=== PATIENT | female | born 1980 | race Caucasian/White ===

== ENCOUNTER 2017-12-02 08:50 | Emergency (ER) | payer OTHER ==
[2017-12-02 08:56] VITALS: PULSE 96; TEMP 98.3; BMI 29.0
[2017-12-02] MEDS ORDERED: diazePAM 2 MG TABLET PO ONE (09:49)
--- NOTE | 2017-12-02 09:53 | PDOC ---
History of Present Illness - General Chief Complaint: Pain Stated Complaint: CHEST AND BACK PAIN Time Seen by Provider: 12/02/17 09:07 History Source: Patient Exam Limitations: No Limitations - History of Present Illness Initial Comments: 12/02/17 09:51 37 yr female with c/o burning to her neck and chest started this am when she rolled over in bed. Pt felt stiffness, no chest pain no SOB. no medical history or allergies. LMP last week. Severity: mild Associated Symptoms: reports: chest pain Past History - Past Medical History Allergies/Adverse Reactions: Allergies Allergy/AdvReac Type Severity Reaction Status Date / Time Penicillins Allergy Mild Vomiting Verified 12/02/17 08:52 Home Medications: Ambulatory Orders Diazepam [Valium] 5 mg PO Q8H PRN #10 tablet MDD 15mg 12/02/17 Naproxen [Naprosyn] 500 mg PO BID PRN #28 tablet 12/02/17 Anemia: No Asthma: No Cancer: No Cardiac Disorders: No CVA: No COPD: No CHF: No Dementia: No Diabetes: No GI Disorders: No Disorders: No HTN: No Hypercholesterolemia: No Liver Disease: No Seizures: No Thyroid Disease: No - Suicide/Smoking/Psychosocial Hx Smoking History: Never smoked Have you smoked in the past 12 months: No Information on smoking cessation initiated: No Hx Alcohol Use: Yes (occasional) Drug/Substance Use Hx: Yes (nate) Substance Use Type: Marijuana Hx Substance Use Treatment: No *Physical Exam - Vital Signs Last Vital Signs Temp Pulse Resp BP Pulse Ox 98.3 F 96 H 18 124/74 100 12/02/17 08:53 12/02/17 08:53 12/02/17 08:53 12/02/17 08:53 12/02/17 08:53 - Physical Exam General Appearance: Yes: Nourished, Appropriately Dressed HEENT: positive: EOMI, ES, Normal ENT Inspection, TMs Normal, Pharynx Normal Neck: positive: Supple, Decreased range of motion. negative: Tender, Carotid bruit, Stridor, Lymphadenopathy (L), Rigidity, Tender lateral, Tender midline Respiratory/Chest: positive: Lungs Clear, Normal Breath Sounds. negative: Chest Tender Cardiovascular: positive: Regular Rhythm, Regular Rate Gastrointestinal/Abdominal: positive: Normal Bowel Sounds, Soft Musculoskeletal: positive: Normal Inspection, Decreased Range of Motion (of cervical neck, no midline tenderness, no soft tissue swelling or tenderness , pain with flexion and extension and lateral rotation ) Extremity: positive: Normal Capillary Refill, Normal Inspection, Normal Range of Motion Integumentary: positive: Normal Color, Dry, Warm Neurologic: positive: Fully Oriented, Alert, Normal Mood/Affect, Normal Response , Motor Strength 5/5 Heart Score/ECG Review - ECG Impressions Normal ECG: Yes Non-specific ST Elevation: No Comment:: 12/02/17 09:50 NSR signed by ED Treatment Course - ADDITIONAL ORDERS Additional order review: Laboratory Results 12/02/17 09:40 Urine HCG, Qual Negative - RADIOLOGY Radiology Studies Ordered: Category Date Time Status CHEST PA & LAT [RAD] Stat Radiology 12/02/17 09:49 Ordered SPINE-CERVICAL [RAD] Stat Radiology 12/02/17 09:49 Ordered Medical Decision Making - Medical Decision Making 12/02/17 09:52 cc: chest pain with turning of her neck no arm pain or numbness no sore throat, denies fever chills no cough will check , will give maalox, zantac and valium xray chest and neck non toxic stable vitals 12/02/17 10:32 xrays are normal pt denies any chest pain at present no SOB discussed the case and the plan with who agrees with plan of care pt is to return to ER for any worsening symptoms will take naprosyn and valium as needed for spams, pain no risk factors for PE PECARN: 0 criteria No need for further workup, as <2% chance of PE. If no criteria are positive and clinicians pre-test probability is <15%, PERC Rule criteria are satisfied. blood pressures are similair in both arms no changes *DC/Admit/Observation/Transfer Diagnosis at time of Disposition: Muscle spasm - Discharge Dispostion Disposition: HOME Condition at time of disposition: Good - Prescriptions Prescriptions: Diazepam [Valium] 5 mg PO Q8H PRN #10 tablet MDD 15mg PRN Reason: Muscle Spasms Naproxen [Naprosyn] 500 mg PO BID PRN #28 tablet PRN Reason: Pain - Referrals Referrals: Josh Stephenson MD [Staff Physician] - - Patient Instructions Additional Instructions: please follow up with for primary care call Monday to set up appointment take the medications as prescribed do not drive while taking valium apply warm compresses to the areas of pain to your neck especially Return to ER for any worsening symptoms any shortness of breath fever, chest pain or any other concerns - Post Discharge Activity
[2017-12-02] MEDS ORDERED: diazePAM 2 MG TABLET ONE (09:58)
[2017-12-02 10:23] VITALS: BP 116/70
[2017-12-02] MEDS ORDERED: RANITIDINE HCL 150 MG TABLET (FP) PO ONE (10:29)
[2017-12-02] MEDS ORDERED: MAG HYDROX/AL HYDROX/SIMETH 30 ML UNIT-DOSE CUP PO ONE (10:29)
[2017-12-02] MEDS ORDERED: RANITIDINE HCL 150 MG TABLET (FP) ONE (10:31)
[2017-12-02] MEDS ORDERED: MAG HYDROX/AL HYDROX/SIMETH 30 ML UNIT-DOSE CUP ONE (10:31)
--- NOTE | 2017-12-03 11:15 | PDOC ---
Patient Follow-up (Call Back) - Post ED Follow - Up Chief Complaint: Pain Condition at time of discharge: Good Disposition at time of original discharge: HOME Signs/Symptoms Improved: Yes (pt states "it's better but not gone") - Disposition Additional Instructions/Notes: spoke with pt this am to see how she was doing as a follow up call. pt states she does feel better however feels it more when she wakes up. pt denies any shortness of breath no chest pain no fever no cough. I have discussed pt should return to ER for any concerns and follow with the referral I gave her yesterday. Pt agrees with plan and is satisified with the plan.
--- NOTE | 2017-12-03 16:08 | EKG ---
Test Reason : Blood Pressure : / mmHG Vent. Rate : 083 BPM Atrial Rate : 083 BPM P-R Int : 116 ms QRS Dur : 072 ms QT Int : 376 ms P-R-T Axes : 041 046 050 degrees QTc Int : 441 ms NORMAL SINUS RHYTHM NORMAL ECG NO PREVIOUS ECGS AVAILABLE Confirmed by Drew Okeefe ([id number]) on 12/03/2017 4:07:40 PM Referred By: Confirmed By:Drew Okeefe
== END 2017-12-02 10:41 | disposition home or self-care (01) ==
LOC: JERFT 08:50
DX: M62.838 Other muscle spasm (principal); X50.1XXA Overexertion from prolonged static or awkward postures, initial encounter; Y93.89 Activity, other specified; Y92.032 Bedroom in apartment as the place of occurrence of the external cause
CPT/HCPCS: 71046-TC; 72050-TC; 84703; 93005; 93010; 99281-25

== ENCOUNTER 2018-08-18 13:40 | Emergency (ER) | payer SELFPAY ==
[2018-08-18 13:48] VITALS: BMI 29.7
--- NOTE | 2018-08-18 13:48 | PDOC ---
History of Present Illness - General Chief Complaint: Edema Stated Complaint: SWOLLEN LEGS Time Seen by Provider: 08/18/18 13:48 Past History - Past Medical History Allergies/Adverse Reactions: Allergies Allergy/AdvReac Type Severity Reaction Status Date / Time Penicillins Allergy Mild Vomiting Verified 08/18/18 13:45 Home Medications: Ambulatory Orders Diazepam [Valium] 5 mg PO Q8H PRN #10 tablet MDD 15mg 12/02/17 Diazepam [Valium] 5 mg PO Q8H PRN #12 tablet MDD 15 12/02/17 Naproxen [Naprosyn -] 500 mg PO BID #14 tablet 12/02/17 Naproxen [Naprosyn] 500 mg PO BID PRN #28 tablet 12/02/17 Anemia: No Asthma: No Cancer: No Cardiac Disorders: No CVA: No COPD: No CHF: No Dementia: No Diabetes: No GI Disorders: No Disorders: No HTN: No Hypercholesterolemia: No Liver Disease: No Seizures: No Thyroid Disease: No - Immunization History Immunization Up to Date: Yes - Suicide/Smoking/Psychosocial Hx Smoking History: Never smoked Have you smoked in the past 12 months: No Hx Alcohol Use: No Drug/Substance Use Hx: Yes Substance Use Type: Marijuana Hx Substance Use Treatment: No *Physical Exam - Vital Signs Last Vital Signs Temp Pulse Resp BP Pulse Ox 98.7 F 98 H 18 128/75 100 08/18/18 13:45 08/18/18 13:45 08/18/18 13:45 08/18/18 13:45 08/18/18 13:45
--- NOTE | 2018-08-18 13:56 | PDOC ---
History of Present Illness - General History Source: Patient Exam Limitations: No Limitations - History of Present Illness Initial Comments: 08/18/18 14:23 The patient is a 37-year-old female with past medical history significant for fibroids and cyst was sent to the emergency department from [facility] for low H& H of 7.5. The patient reports she was following up at for B/l ankle/leg swelling since yesterday, states she noticed a purplish imprint to the ankle when she took off her socks yesterday. The patient states she followed up at [facility] earlier today, where she had some blood work done. The patient reports she was informed that her hemoglobin is low and referred the patient to follow up at the ER. The patient states her mother told her that she looks pale, which she attributes to her vegetarian diet. Denies prior hx of low blood work, chest pain, shortness of breath, leg cramping, recent travel, hematochezia, melena, lightheadedness, dizziness. Denies hx of transfusion. Allergies: penicillins Social history: No past or present use of tobacco or alcohol use reported. Marijuana use reported. Surgical history: none reported PCP: none reported. <Shyanne Wagner - Last Filed: 08/18/18 17:17> <Cheryl Larkin - Last Filed: 08/18/18 18:59> - General Chief Complaint: Edema Stated Complaint: SWOLLEN LEGS Time Seen by Provider: 08/18/18 13:48 Past History <Shyanne Wagner - Last Filed: 08/18/18 17:17> - Past Medical History Anemia: No Asthma: No Cancer: No Cardiac Disorders: No CVA: No COPD: No CHF: No Dementia: No Diabetes: No GI Disorders: No Disorders: No HTN: No Hypercholesterolemia: No Liver Disease: No Seizures: No Thyroid Disease: No - Immunization History Immunization Up to Date: Yes - Suicide/Smoking/Psychosocial Hx Smoking History: Never smoked Have you smoked in the past 12 months: No Hx Alcohol Use: No Drug/Substance Use Hx: Yes Substance Use Type: Marijuana Hx Substance Use Treatment: No <Cheryl Larkin - Last Filed: 08/18/18 18:59> - Past Medical History Allergies/Adverse Reactions: Allergies Allergy/AdvReac Type Severity Reaction Status Date / Time Penicillins Allergy Mild Vomiting Verified 08/18/18 13:45 Home Medications: Ambulatory Orders Ferrous Sulfate 325 mg PO DAILY #14 tablet 08/18/18 Review of Systems - Review of Systems Able to Perform ROS?: Yes Comments:: 08/18/18 14:22 GENERAL/CONSTITUTIONAL: No fever or chills. No weakness. HEAD, EYES, EARS, NOSE AND THROAT: No change in vision. No ear pain or discharge. No sore throat. CARDIOVASCULAR: No chest pain or shortness of breath. RESPIRATORY: No cough, wheezing, or hemoptysis. GASTROINTESTINAL: No nausea, vomiting, diarrhea or constipation. GENITOURINARY: No dysuria, frequency, or change in urination. MUSCULOSKELETAL: No joint or muscle swelling or pain. No neck or back pain. EXTREMITIES: (+) B/l swelling to the leg and ankle. SKIN: No rash NEUROLOGIC: No headache, vertigo, loss of consciousness, or change in strength/ sensation. ENDOCRINE: No increased thirst. No abnormal weight change. HEMATOLOGIC/LYMPHATIC: No anemia, easy bleeding, or history of blood clots. ALLERGIC/IMMUNOLOGIC: No hives or skin allergy. <Shyanne Wagner - Last Filed: 08/18/18 17:17> *Physical Exam - Vital Signs Last Vital Signs Temp Pulse Resp BP Pulse Ox 98.7 F 98 H 18 128/75 100 08/18/18 13:45 08/18/18 13:45 08/18/18 13:45 08/18/18 13:45 08/18/18 13:45 - Physical Exam Comments: 08/18/18 14:19 GENERAL: Awake, alert, and fully oriented, in no acute distress HEAD: No signs of trauma EYES: PERRLA, EOMI, sclera anicteric, (+) pale conjunctiva. ENT: Auricles normal inspection, hearing grossly normal, nares patent, oropharynx clear without exudates. Moist mucosa NECK: Normal ROM, supple, no lymphadenopathy, JVD, or masses LUNGS: Breath sounds equal, clear to auscultation bilaterally. No wheezes, and no crackles HEART: Regular rate and rhythm, normal S1 and S2, no murmurs, rubs or gallops ABDOMEN: Soft, nontender, normoactive bowel sounds. No guarding, no rebound. No masses EXTREMITIES: (+) Trace edema to the ankle. Normal range of motion. No clubbing or cyanosis. No cords, erythema, or tenderness NEUROLOGICAL: Cranial nerves II through XII grossly intact. Normal speech, normal gait SKIN: Pale in color. Warm, Dry, normal turgor, no rashes or lesions noted. 08/18/18 14:23 <Shyanne Wagner - Last Filed: 08/18/18 17:17> - Vital Signs Last Vital Signs Temp Pulse Resp BP Pulse Ox 98.7 F 98 H 18 128/75 100 08/18/18 13:45 08/18/18 13:45 08/18/18 13:45 08/18/18 13:45 08/18/18 13:45 <Cheryl Larkin - Last Filed: 08/18/18 18:59> Heart Score/ECG Review - ECG Intrepretation Comment:: 08/18/18 14:43 sinus at 80, nl axis, nl interval, no acute st/t wave findings <Cheryl Larkin - Last Filed: 08/18/18 18:59> ED Treatment Course - LABORATORY CBC & Chemistry Diagram: 08/18/18 14:14 08/18/18 14:14 <Shyanne Wagner - Last Filed: 08/18/18 17:17> - LABORATORY CBC & Chemistry Diagram: 08/18/18 14:14 08/18/18 14:14 <Cheryl Larkin - Last Filed: 08/18/18 18:59> Medical Decision Making - Medical Decision Making 08/18/18 14:40 a/p: 37yo female sent from urgent care for low h/h -hx of anemia with baseline hgb of 9.5 per prior labs -states hx of fibroid and hx of heavy menstrual cycles -has been told she may need a hysterectomy, not currently menstruating -no brbpr or blood in stool, no vomiting blood -states LE are swollen at the ankle only - noticed last night that her socks made an indent -will repeat labs, will transfuse as necessary -will send IRON studies, prior low mcv -discussed plan with the patient and her family at the bedside who agree with the plan -no lightheaded or dizziness, no cp/sob 08/18/18 14:48 pt with hgb 6.8 stool heme negative will transfuse 1pRBC discussed labs with the patient who agrees with the plan 08/18/18 15:30 pt with O+ blood 08/18/18 16:35 transfusion running, tolerating well 08/18/18 18:23 re-eval: pt sitting up, laughing with her family feels better discussed iron tabs discussed taking colace otc if she develops constipation discussed repeat cbc as outpt discussed following up with heme/onc, production controller, and pmd answered all questions 08/18/18 18:51 transfusion has finished stable for d/c to home vss 08/18/18 18:59 pt feeling much better discussed d/c instructions again. <Cheryl Larkin - Last Filed: 08/18/18 18:59> *DC/Admit/Observation/Transfer - Attestations Scribe Attestion: 08/18/18 17:17 Documentation prepared by Shyanne Wagner, acting as claim review medical director for Cheryl Larkin DO. <Shyanne Wagner - Last Filed: 08/18/18 17:17> - Discharge Dispostion Decision to Admit order: No - Attestations Physician Attestion: 08/18/18 17:03 I, Dr. Cheryl Larkin DO, attest that this document has been prepared under my direction and personally reviewed by me in its entirety. I further attest, that it accurately reflects all work, treatment, procedures and medical decision -making performed by me. <Cheryl Larkin - Last Filed: 08/18/18 18:59> Diagnosis at time of Disposition: Anemia - Discharge Dispostion Condition at time of disposition: Stable - Prescriptions Prescriptions: Ferrous Sulfate 325 mg PO DAILY #14 tablet - Referrals Referrals: Israel Mcmullen MD [Staff Physician] - Franklin Amado MD [Staff Physician] - Josh Stephenson MD [Staff Physician] - Ron Galeano MD [Staff Physician] - - Patient Instructions Printed Discharge Instructions: DI for Iron Deficiency Anemia-Adult Additional Instructions: Please follow up with your PMD. Your iron studies are pending. I did prescribed iron tablets given your small size of the red blood cells. Please follow up with your LEAD ASSEMBLER for your heavy menstrual cycles and heavy vaginal bleeding. Please return to the ED with any further concerns or complaints. Please also follow up with the broke man. Please have your blood counts check again in 2 days.
[2018-08-18 14:25] LABS: BASO % 1.3 % (0-2.0); EOS % 2.9 % (0-4.5); HEMATOCRIT 23.4 % (32.4-45.2); LYMPH % 20.8 % (8-40); MEAN CELL VOLUME 61.7 fl (80-96); MEAN PLT VOLUME 7.8 fl (7.5-11.1); MONO % 4.6 % (3.8-10.2); NEUT % 70.4 % (42.8-82.8); PLATELET COUNT 628 K/MM3 (134-434); WHITE BLOOD COUNT 8.1 K/mm3 (4.0-10.0)
[2018-08-18 14:26] LABS: MCH 17.9 pg (25.7-33.7)
[2018-08-18 14:27] LABS: HEMOGLOBIN 6.8 GM/dL (10.7-15.3)
[2018-08-18 14:48] LABS: INR 1.01 (0.83-1.09); PROTHROMBIN TIME (PATIENT) 11.9 SEC (9.7-13.0)
[2018-08-18 14:51] LABS: ACTIVATED PTT 34.6 SECONDS (25.2-36.5)
[2018-08-18 15:03] LABS: ALBUMIN 3.4 g/dl (3.4-5.0); ALK PHOS 60 U/L (45-117); ANION GAP 7 MMOL/L (8-16); BILIRUBIN,TOTAL 0.2 mg/dL (0.2-1); BLOOD UREA NITROGEN 6 mg/dL (7-18); CALCIUM 8.4 mg/dL (8.5-10.1); CHLORIDE 108 mmol/L (98-107); CO2 26 mmol/L (21-32); CREATININE 0.7 mg/dL (0.55-1.3); GLUCOSE,RANDOM 114 mg/dL (74-106); SGOT/AST 15 U/L (15-37); SGPT/ALT 18 U/L (13-61); SODIUM 141 mmol/L (136-145); TOT PROT 6.7 g/dl (6.4-8.2)
--- NOTE | 2018-08-18 16:38 | EKG ---
Test Reason : Blood Pressure : / mmHG Vent. Rate : 080 BPM Atrial Rate : 080 BPM P-R Int : 110 ms QRS Dur : 074 ms QT Int : 366 ms P-R-T Axes : 032 034 040 degrees QTc Int : 422 ms SINUS RHYTHM WITH SINUS ARRHYTHMIA WITH SHORT IN OTHERWISE NORMAL ECG WHEN COMPARED WITH ECG OF 02-DEC-2017 09:00, NO SIGNIFICANT CHANGE WAS FOUND BASELINE ARTIFACT Confirmed by KRISTEN KWOK, CORDELIA ([id number]) on 08/18/2018 4:38:43 PM Referred By: Confirmed By:CORDELIA PETERSON MD
[2018-08-18 19:32] VITALS: BP 130/70; PULSE 86; TEMP 98.5
[2018-08-20 06:11] LABS: SERUM IRON SATURATION 3 % (15-55); TOTAL IRON BINDING CAPACITY 391 ug/dL (250-450); UIBC 381 ug/dL (131-425)
== END 2018-08-18 19:32 | disposition home or self-care (01) ==
LOC: JER 13:40
PROC: 30233N1 Transfusion of Nonautologous Red Blood Cells into Peripheral Vein, Percutaneous Approach (ICD-10-PCS; principal; 2018-08-18)
DX: D64.9 Anemia, unspecified (principal)
CPT/HCPCS: 36415; 36430; 80053; 82272; 82728; 83540; 83550; 85025; 85610; 85730; 86850; 86900; 86901; 86922; 93005; 93010; 99285-25; P9038; P9058

== ENCOUNTER 2018-10-28 00:53 | Emergency (ER) | payer SELFPAY ==
[2018-10-28 01:05] VITALS: BP 136/76; PULSE 68; TEMP 98.3; BMI 29.0
--- NOTE | 2018-10-28 01:08 | PDOC ---
History of Present Illness - General Chief Complaint: Pain, Acute Stated Complaint: ABD PAIN Time Seen by Provider: 10/28/18 01:07 History Source: Patient Exam Limitations: No Limitations - History of Present Illness Initial Comments: 38 yo F w a pmh of anemia presents to the ER with 24 hours of epigastric pain which radiates to her back associated with nausea and multiple episodes of vomiting. She states there might have been a bit of pink at the end of one her vomiting episodes. She says the vomitus did not look green. She has been throwing up anything she eats. She says the abdominal pain is not temporally related to any food she eats. She has been having normal bowel movements with no diarrhea or constipation. She denies any recent fevers, chills, or infections. Denies any chest pain, SOB , or difficulty breathing. Denies dysuria, frequency, urgency. Denies any numbness, weakness, tingling. PCP: None Allergies: NKA, NKDA Social Hx: Significant marijuana usage. Recreational alcohol usage. Denies smoking cigarettes. Denies other illicit substances. Past History - Past Medical History Allergies/Adverse Reactions: Allergies Allergy/AdvReac Type Severity Reaction Status Date / Time Penicillins Allergy Mild Vomiting Verified 10/28/18 01:05 Home Medications: Ambulatory Orders Ferrous Sulfate 325 mg PO DAILY #14 tablet 08/18/18 Ferrous Sulfate 325 mg PO DAILY #90 tablet 08/22/18 Anemia: No Asthma: No Cancer: No Cardiac Disorders: No CVA: No COPD: No CHF: No Dementia: No Diabetes: No GI Disorders: No Disorders: No HTN: No Hypercholesterolemia: No Liver Disease: No Seizures: No Thyroid Disease: No - Immunization History Immunization Up to Date: Yes - Suicide/Smoking/Psychosocial Hx Smoking History: Never smoked Have you smoked in the past 12 months: No Hx Alcohol Use: No Drug/Substance Use Hx: No Substance Use Type: Marijuana Hx Substance Use Treatment: No Review of Systems - Review of Systems Able to Perform ROS?: Yes Comments:: CONSTITUTIONAL: Absent: fever, no chills, no fatigue EYES: Absent: visual changes ENT: Absent: ear pain, no sore throat CARDIOVASCULAR: Absent: chest pain, no palpitations RESPIRATORY: Absent: cough, no SOB GI: Present: Abdominal pain, nausea, vomiting. Absent: no constipation, no diarrhea GENITOURINARY: Absent: dysuria, no frequency, no hematuria MUSKULOSKELETAL: Present: Back pain Absent: no arthralgia, no myalgia SKIN: Absent: rash NEURO: Absent: headache *Physical Exam - Vital Signs Last Vital Signs Temp Pulse Resp BP Pulse Ox 98.3 F 68 18 136/76 99 10/28/18 00:57 10/28/18 00:57 10/28/18 00:57 10/28/18 00:57 10/28/18 00:57 - Physical Exam Comments: GENERAL: Well-appearing, well-nourished. No apparent distress. HEENT: Normocephalic, atraumatic. PERRL, EOM intact. CARDIOVASCULAR: Normal S1, S2. Regular rate and rhythm. PULMONARY: Clear to auscultation bilaterally. ABDOMEN: There is TTP in the epigastric region. Minimal TTP in the RUQ. Normal bowel sounds. Negative knight sign. Negative rovsig. Abdomen is soft and non- distended. No rebound or guarding. EXTREMITIES: Normal ROM in all four extremities. No gross deformities. SKIN: Warm, dry. No rash NEUROLOGICAL: No focal neurological deficits. Moderate Sedation - Procedure Monitoring Vital Signs: Procedure Monitoring Vital Signs Temperature 98.3 F 10/28/18 00:57 Pulse Rate 68 10/28/18 00:57 Respiratory Rate 18 10/28/18 00:57 Blood Pressure 136/76 10/28/18 00:57 O2 Sat by Pulse Oximetry (%) 99 10/28/18 00:57 ED Treatment Course - LABORATORY CBC & Chemistry Diagram: 10/28/18 01:27 10/28/18 01:27 Medical Decision Making - Medical Decision Making 38 yo F w a pmh of anemia presents to the ER with 24 hours of epigastric pain which radiates to her back associated with nausea and multiple episodes of vomiting. DDx IBNLT: gallstones, pancreatitis, gastroenteritis, food poisoning, other infection, UTI, kidney stones. Plan: Cbc, Cmp, lipase, lactic, ua, Hcg, RUQ us, IV hydration, re-assess. Lipase normal so low concern now for pancreatitis. RUQ US showed gallstones but no cholecystitis. Labs unremarkable. Will DC w GI and surgical FU. *DC/Admit/Observation/Transfer Diagnosis at time of Disposition: Gallstones, Gastroenteritis - Discharge Dispostion Disposition: HOME Condition at time of disposition: Stable Decision to Admit order: No - Referrals Referrals: Carlos Lassiter MD [Staff Physician] - Cody Neri MD [Staff Physician] - - Patient Instructions Printed Discharge Instructions: Acute Abdominal Pain, Gallstones (Alternative Therapy), Gallstones Additional Instructions: You came into the ER with abdominal pain, nausea and vomiting. We looked at your gallbladder and found that you have many stones. We are attaching a surgeon 's number for you to call and schedule an appointment with - Dr. Lassiter. Please call her office up tomorrow. We did some lab tests and found that you do not have pancreatitis. Take motrin, ibuprofen, advil, or tylenol as needed for pain control. Come back to the ER if your pain worsens, or have any other new or worsening concerns. Thank you for coming to the [facility] ER. We hope you feel better soon! Print Language: LIBYAN - Post Discharge Activity
[2018-10-28] MEDS ORDERED: SODIUM CHLORIDE 0.9% 500 ML INFUS.BAG IV ONE (01:28)
[2018-10-28 01:43] LABS: EOS % 2.1 % (0-4.5); HEMOGLOBIN 11.5 GM/dL (10.7-15.3); LYMPH % 19.5 % (8-40); MCH 24.8 pg (25.7-33.7); MCHC 32.9 g/dl (32.0-36.0); MEAN CELL VOLUME 75.3 fl (80-96); MONO % 7.5 % (3.8-10.2); NEUT % 69.9 % (42.8-82.8); PLATELET COUNT 481 K/MM3 (134-434); RBC 4.65 M/mm3 (3.60-5.2); RDW 19.9 % (11.6-15.6); WHITE BLOOD COUNT 9.3 K/mm3 (4.0-10.0)
[2018-10-28] MEDS ORDERED: ACETAMINOPHEN 1000 MG/100 ML VIAL (NON FORMULARY) IVPB ONE (01:44)
--- NOTE | 2018-10-28 01:49 | PDOC ---
Attending Attestation - HPI HPI: 10/28/18 02:00 The patient is a 38 year old female with past medical history significant for anemia (w/ blood transfusion in the past) presents to the emergency department with epigastric pain. The patient presents with 24 hours of epigastric pain that radiates to the back, associated with nausea and multiple episode of nonbilious emesis. The patient reports she might have had an episode of pinkish emesis. The patient reports the pain isnt aggravated with food. The patient reports having a normal bowel movements. Denies fever, hematochezia, melena, diarrhea, constipation, abdominal surgery, dysuria, hematuria, frequency or urgency to urinate, hx of kidney stones. Allergies: penicillins Social history: Marijuana use reported. No tobacco use reported. PCP: None reported - Medical Decision Making 10/28/18 02:00 Documentation prepared by Shyanne Wagner, acting as medical affairs leader for Martha Barry MD. <Shyanne Wagner - Last Filed: 10/28/18 02:00> - Resident Resident Name: Farhan Corey - ED Attending Attestation I have performed the following: I have examined & evaluated the patient, The case was reviewed & discussed with the resident, I agree w/resident's findings & plan - Physicial Exam PE: 10/28/18 02:37 Agree with resident exam. Pt has no fever, nop rebound and no guarding. She has no flank pain and edmundo has normal heart and lungs. She has a small healing cyst beneath the right breast. She has no active infection beneath the breast. - Medical Decision Making 10/28/18 02:39 Pt will be advised to follow with Dr. Lassiter 10/28/18 23:01 Patient Name: JOEL MORTENSEN THIS IS A PRELIMINARY REPORT FROM [facility] N[facility] DATE OF SERVICE: 2018-10-28 02:06:27 IMAGES: 62 EXAM: Ultrasound abdomen limited, right upper quadrant and limited abdominal duplex HISTORY: Rule out gallstones or pancreatitis COMPARISON: None. FINDINGS: Right upper quadrant ultrasound:The liver is normal, without mass or biliary duct dilation. The gallbladder contains multiple stones but there are no secondary findings of cholecystitis. The CBD is not dilated and measures4 millimeters in diameter. Right kidney measures 8.8centimeters in length and is unremarkable. The visualized aorta and IVC are normal. Pancreas is partially obscured, but appears normal. Abdominal duplex on the main portal vein demonstrates normal hepatopedal flow. IMPRESSION: Gallstones without secondary findings of cholecystitis. Borderline right renal atrophy Diagnosis: Biliary colic <Martha Barry - Last Filed: 10/28/18 23:02>
[2018-10-28] MEDS ORDERED: ACETAMINOPHEN INJECTION 100 ML IVPB ONE (01:50)
[2018-10-28 02:17] LABS: ALBUMIN 3.8 g/dl (3.4-5.0); ALK PHOS 72 U/L (45-117); ANION GAP 7 MMOL/L (8-16); BILIRUBIN,TOTAL 0.3 mg/dL (0.2-1); BLOOD UREA NITROGEN 8 mg/dL (7-18); CHLORIDE 102 mmol/L (98-107); CO2 30 mmol/L (21-32); CREATININE 0.8 mg/dL (0.55-1.3); GLUCOSE,RANDOM 105 mg/dL (74-106); LIPASE 138 U/L (73-393); POTASSIUM 4.4 mmol/L (3.5-5.1); SGOT/AST 15 U/L (15-37); SGPT/ALT 19 U/L (13-61); SODIUM 139 mmol/L (136-145); TOT PROT 7.1 g/dl (6.4-8.2)
[2018-10-28 03:04] LABS: URINE APPEARANCE CLEAR; URINE BILIRUBIN NEGATIVE (<2.0 mg/dL); URINE COLOR LTYELLOW; URINE GLUCOSE (UA) NEGATIVE (NEGATIVE); URINE KETONE NEGATIVE (NEGATIVE); URINE LEUK ESTERASE NEGATIVE (NEGATIVE); URINE NITRITE NEGATIVE (NEGATIVE); URINE PROTEIN NEGATIVE (NEGATIVE); URINE UROBILINOGEN NEGATIVE mg/dL (0.2-1.0)
[2018-10-28 03:28] LABS: EPI CELLS RARE /HPF (FEW); URINE MUCUS RARE
--- NOTE | 2018-10-28 19:51 | PDOC ---
Patient Follow-up (Call Back) - Post ED Follow - Up Chief Complaint: Pain Condition at time of discharge: Stable Disposition at time of original discharge: HOME - Disposition Additional Instructions/Notes: Patient was seen for abdominal pain. We received a call back from Dr. Moses crowell in the ED at 7:30 pm saying the US read may have actually been suspicious for cholecystitis. It was equivocal for cholecystitis with possible wall distention but no definitive read. The original read said only gallstones but no cholecystitis. I called up the patient after hearing this news, asked how she was doing, she said she feels well and has not had any issues since she got home. I re-iterated to her the importance of scheduling a follow up [facility] with Dr. Lassiter to discuss whether or not to have her gallbladder removed urgently vs emergently. I once again explained to her what to look out for in terms of signs and symptoms of cholecystitis - worsening abdominal pain, nausea, vomiting , fever, pain with fever after meals and how important it is for her to come back to the ED immediately if her pain worsens. Arnold Barron PGY-1
== END 2018-10-28 03:35 | disposition home or self-care (01) ==
LOC: JER 00:53
PROC: 3E0337Z Introduction of Electrolytic and Water Balance Substance into Peripheral Vein, Percutaneous Approach (ICD-10-PCS; principal; 2018-10-28)
PROC: 3E033NZ Introduction of Analgesics, Hypnotics, Sedatives into Peripheral Vein, Percutaneous Approach (ICD-10-PCS; 2018-10-28)
DX: K52.9 Noninfective gastroenteritis and colitis, unspecified (principal); K80.80 Other cholelithiasis without obstruction
CPT/HCPCS: 36415; 76705-TC; 80053; 81003; 81015; 83605; 83690; 85025; 99282-25; J0131

== ENCOUNTER 2018-11-06 20:10 | Inpatient (IN) | payer SELFPAY ==
[2018-11-06 20:19] VITALS: BMI 28.1
--- NOTE | 2018-11-06 20:36 | PDOC ---
History of Present Illness - General Chief Complaint: Pain, Acute Stated Complaint: PAIN Time Seen by Provider: 11/06/18 20:24 History Source: Patient Exam Limitations: No Limitations - History of Present Illness Initial Comments: 11/06/18 22:43 Patient is a 38-year-old female with past medical history of anemia with hx of transfusion, uterine fibroids, who presents to the emergency department today with epigastric and right upper quadrant pain. Patient states she was seen here approximately 1 week ago and diagnosed with gallstones. She states that today the pain became more intense and she rates it a 12 out of 10. She states that she's been unable to eat due to the pain. Patient admits to nausea however no vomiting. She has been taking Tylenol and Motrin at home with little relief of her symptoms. Denies fevers, chills, shortness of breath, chest pain, vomiting, diarrhea, constipation. SHx: Marijuana use daily, no cigarette use PCP: None Surgery: [facility] COPIER AND PRINTER FIELD TECHNICIAN: Dr. Broderick ([facility]) Past History - Travel Traveled outside of the country in the last 30 days: No Close contact w/someone who was outside of country & ill: No - Past Medical History Allergies/Adverse Reactions: Allergies Allergy/AdvReac Type Severity Reaction Status Date / Time Penicillins Allergy Mild Vomiting Verified 11/06/18 20:18 Home Medications: Ambulatory Orders NK [No Known Home Medication] 11/06/18 Anemia: No Asthma: No Cancer: No Cardiac Disorders: No CVA: No COPD: No CHF: No Dementia: No Diabetes: No GI Disorders: Yes (gallstones) Disorders: No HTN: No Hypercholesterolemia: No Liver Disease: No Seizures: No Thyroid Disease: No - Immunization History Immunization Up to Date: Yes - Suicide/Smoking/Psychosocial Hx Smoking History: Never smoked Have you smoked in the past 12 months: No Information on smoking cessation initiated: No Hx Alcohol Use: No Drug/Substance Use Hx: No Substance Use Type: Marijuana Hx Substance Use Treatment: No Review of Systems - Review of Systems Able to Perform ROS?: Yes Comments:: 11/06/18 22:46 CONSTITUTIONAL: Absent: fever, chills, diaphoresis, generalized weakness, malaise, loss of appetite HEENT: Absent: rhinorrhea, nasal congestion, throat pain, throat swelling, difficulty swallowing, mouth swelling, ear pain, eye pain, visual Changes CARDIOVASCULAR: Absent: chest pain, loss of consciousness, palpitations, irregular heart rate, peripheral edema RESPIRATORY: Absent: cough, shortness of breath, dyspnea with exertion, orthopnea, wheezing, stridor, hemoptysis GASTROINTESTINAL: Present: abdominal pain, nausea Absent: abdominal distension, vomiting, diarrhea , constipation, melena, hematochezia GENITOURINARY: Absent: dysuria, frequency, urgency, hesitancy, hematuria, flank pain, genital pain MUSCULOSKELETAL: Absent: myalgia, arthralgia, joint swelling SKIN: Absent: rash, itching, pallor HEMATOLOGIC/IMMUNOLOGIC: Absent: easy bleeding, easy bruising, lymphadenopathy, frequent infections ENDOCRINE: Absent: unexplained weight gain, unexplained weight loss, heat intolerance, cold intolerance NEUROLOGIC: Absent: headache, focal weakness or paresthesias, dizziness, unsteady gait, seizure, mental status changes, bladder or bowel incontinence PSYCHIATRIC: Absent: anxiety, depression, suicidal or homicidal ideation, hallucinations. Is the patient limited Ukrainian proficient: No *Physical Exam - Vital Signs Last Vital Signs Temp Pulse Resp BP Pulse Ox 97.3 F L 60 16 145/70 100 11/06/18 20:16 11/06/18 20:16 11/06/18 20:16 11/06/18 20:16 11/06/18 20:16 - Physical Exam Comments: 11/06/18 22:46 GENERAL: Well developed, well nourished. Awake and alert. No acute distress. HEENT: Normocephalic, atraumatic. PERRLA, EOMI. No conjunctival pallor. Sclera are non- icteric. Moist mucous membranes. Oropharynx is clear. NECK: Supple. Full ROM. No JVD. Carotid pulses 2+ and symmetric, without bruits. No thyromegaly. No lymphadenopathy. CARDIOVASCULAR: Regular rate and rhythm. No murmurs, rubs, or gallops. Distal pulses are 2+ and symmetric. PULMONARY: No evidence of respiratory distress. Lungs clear to auscultation bilaterally. No wheezing, rales or rhonchi. ABDOMINAL: TTP of the RUQ and epigastric region. (+) ash's sign. Soft. Non-distended. No rebound or guarding. No organomegaly. Normoactive bowel sounds. Large uterus on palpation. MUSCULOSKELETAL Normal range of motion at all joints. No bony deformities or tenderness. No CVA tenderness. EXTREMITIES: No cyanosis. No clubbing. No edema. No calf tenderness. SKIN: Warm and dry. Normal capillary refill. No rashes. No jaundice. NEUROLOGICAL: Alert, awake, appropriate. Cranial nerves 2-12 intact. No deficits to light touch and temperature in face, upper extremities and lower extremities. No motor deficits in the in face, upper extremities and lower extremities. Normoreflexic in the upper and lower extremities. Normal speech. Toes are down- going bilaterally. Gait is normal without ataxia. PSYCHIATRIC: Cooperative. Good eye contact. Appropriate mood and affect. Moderate Sedation - Procedure Monitoring Vital Signs: Procedure Monitoring Vital Signs Temperature 97.3 F L 11/06/18 20:16 Pulse Rate 60 11/06/18 20:16 Respiratory Rate 16 11/06/18 20:16 Blood Pressure 145/70 11/06/18 20:16 O2 Sat by Pulse Oximetry (%) 100 11/06/18 20:16 ED Treatment Course - LABORATORY CBC & Chemistry Diagram: 11/06/18 21:20 11/06/18 21:20 Medical Decision Making - Medical Decision Making 11/06/18 23:12 Patient is a 38-year-old female past medical history of anemia requiring transfusion, fibroids, who presents to the emergency department with worsening right upper quadrant pain today. DDX includes acute cholecystitis, biliary colic , choledocholithiasis, pancreatitis, viral illness. On exam patient with positive Ash sign. No CVA tenderness. Hemoglobin is 9.6 today. WBC WNL, no shift. Lipase, LFT's and total bili also WNL EKG: Rate 62 BPM, NSR with sinus arrhythmia. Normal intervals and axis. No acute ST-T wave changes US shows multiple large gallstones. Gallbladder is not thickened, no pericholecystic fluid Most likely biliary colic at this time. Patient received morphine and ofirmev for her pain with some relief of symptoms. However patient still with significant right upper quadrant tenderness. Admit for biliary colic, intractable abdominal pain, and surgical consult Consult to Dr. Lassiter, who states that she has seen the patient in the office as an outpatient for her biliary colic. That patient was also supposed to have a laparoscopic hysterectomy in November. There was discussion of possibly doing both procedures at the same time at [place]. COPIER AND PRINTER FIELD TECHNICIAN Dr. Broderick. Discussed with patient the need for her hysterectomy. Patient states that she had already called to cancel her hysterectomy with her COPIER AND PRINTER FIELD TECHNICIAN because she felt that her biliary colic was worse. Patient willing to put off her hysterectomy at this time. Understands that she may have to wait to have the hysterectomy due to scarring from the previous gallbladder removal. Also explained to the patient that she could require further transfusion as the fibroids could cause significant bleeding. Patient understands the risks of putting off the hysterectomy. Relayed information to Dr. Lassiter. States that one of her partners will be in to see the patient tomorrow morning. Given that patient does not have acute cholecystitis, will defer antibiotics at this time. Patient nothing by mouth at this time. Maintenance fluids ordered. Symphony consulted. 11/06/18 23:[address] Rhodes. Pt to be placed in observation on med/surg at this time. *DC/Admit/Observation/Transfer Diagnosis at time of Disposition: Gallstones, Biliary colic, Intractable abdominal pain - Discharge Dispostion Condition at time of disposition: Stable Decision to Admit order: Yes - Referrals - Patient Instructions - Post Discharge Activity
[2018-11-06] MEDS ORDERED: SODIUM CHLORIDE 1,000 ML IV STA (20:40)
[2018-11-06] MEDS ORDERED: ACETAMINOPHEN 1000 MG/100 ML VIAL (NON FORMULARY) IVPB ONE (20:41)
--- NOTE | 2018-11-06 20:54 | PDOC ---
*Physical Exam - Vital Signs Last Vital Signs Temp Pulse Resp BP Pulse Ox 97.3 F L 60 16 145/70 100 11/06/18 20:16 11/06/18 20:16 11/06/18 20:16 11/06/18 20:16 11/06/18 20:16 - Physical Exam Comments: 11/06/18 20:54 The patient was examined by [MAGNOLIA Reyes] under my direct supervision. I personally evaluated the patient. I concur with the above findings and the plan of care. ED Treatment Course - LABORATORY CBC & Chemistry Diagram: 11/08/18 06:30 11/08/18 06:30 *DC/Admit/Observation/Transfer Diagnosis at time of Disposition: Gallstones, Biliary colic, Intractable abdominal pain - Discharge Dispostion Disposition: HOME Condition at time of disposition: Improved - Prescriptions - Referrals - Patient Instructions - Post Discharge Activity
[2018-11-06] MEDS ORDERED: morphine CARPU-JECT 4 MG/1 ML DISP.SYRIN IVPUSH ONE (21:12)
[2018-11-06 21:28] LABS: HEMATOCRIT 28.7 % (32.4-45.2); MCH 25.5 pg (25.7-33.7); MONO % 5.8 % (3.8-10.2); RBC 3.78 M/mm3 (3.60-5.2)
[2018-11-06 21:33] LABS: BASO % 0.9 % (0-2.0); EOS % 2.3 % (0-4.5); HEMOGLOBIN 9.6 GM/dL (10.7-15.3); LYMPH % 19.6 % (8-40); MCHC 33.5 g/dl (32.0-36.0); MEAN PLT VOLUME 8.2 fl (7.5-11.1); NEUT % 71.4 % (42.8-82.8); PLATELET COUNT 432 K/MM3 (134-434); RDW 17.5 % (11.6-15.6); WHITE BLOOD COUNT 7.3 K/mm3 (4.0-10.0)
[2018-11-06 21:39] LABS: INR 1.02 (0.83-1.09)
[2018-11-06] MEDS ORDERED: morphine SULFATE 4 MG/ML VIAL ONE (21:48)
[2018-11-06 21:53] LABS: ALBUMIN 3.6 g/dl (3.4-5.0); ALK PHOS 63 U/L (45-117); ANION GAP 7 MMOL/L (8-16); BILIRUBIN,TOTAL 0.2 mg/dL (0.2-1); BLOOD UREA NITROGEN 7 mg/dL (7-18); CALCIUM 8.5 mg/dL (8.5-10.1); CHLORIDE 111 mmol/L (98-107); CO2 23 mmol/L (21-32); CREATININE 0.7 mg/dL (0.55-1.3); GLUCOSE,RANDOM 91 mg/dL (74-106); POTASSIUM 4.3 mmol/L (3.5-5.1); SGOT/AST 17 U/L (15-37); SGPT/ALT 18 U/L (13-61); SODIUM 142 mmol/L (136-145); TOT PROT 6.5 g/dl (6.4-8.2)
[2018-11-06] MEDS ORDERED: ONDANSETRON 4 MG/2 ML VIAL IVPUSH ONE (21:56)
[2018-11-06 22:33] LABS: PLATELET ESTIMATE INCREASED
[2018-11-06 23:07] LABS: URINE APPEARANCE CLEAR; URINE BILIRUBIN NEGATIVE (<2.0 mg/dL); URINE COLOR STRAW; URINE GLUCOSE (UA) NEGATIVE (NEGATIVE); URINE KETONE 1+ (NEGATIVE); URINE LEUK ESTERASE NEGATIVE (NEGATIVE); URINE NITRITE NEGATIVE (NEGATIVE); URINE PROTEIN NEGATIVE (NEGATIVE); URINE UROBILINOGEN NEGATIVE mg/dL (0.2-1.0)
[2018-11-06 23:09] LABS: HCG,QUALITATIVE URINE Negative
[2018-11-06 23:12] LABS: URINE BACTERIA RARE /hpf (NONE SEEN); URINE MUCUS RARE
[2018-11-07] MEDS ORDERED: MORPHINE SULFATE 2 MG/ML VIAL IVPUSH PRN (00:07)
[2018-11-07] MEDS: LACTATED RINGERS SOLUTION 1,000 ML IV SCH ×4 (00:21→20:57)
--- NOTE | 2018-11-07 00:21 | PN ---
Teaching Attending Note Name of Resident: Veronica Rhodes ATTENDING PHYSICIAN STATEMENT I saw and evaluated the patient. I reviewed the resident's note and discussed the case with the resident. I agree with the resident's findings and plan as documented. SUBJECTIVE: Seen and examined; please see resident note for additional historical information. In summation, this is a 38 y/o female presenting to the ER with a CC of abdominal pain that has been recurring in nature; she has a history of cholelithiasis with cholecystitis and follows with Dr. Lassiter. She is supposed to have a cholecystectomy done but has been putting this off for insurance reasons. Nothing makes it better, worse with food. Got severe this morning and progressed to a point where she chose to come to the ER. The last time she was here 10/28 she was found to have equivicol findings for cholecystitis; today the prelim read states that there is no infection. She is afebrile and hemodynamically stable. Dr. Lassiter called by the ER. Speaking with the patient, as she is planned to get a hysterectomy for her fibroids there was discussion of a multidisciplinary approach to the procedure. Admitting to medicine on observation. 10 sys ROS done and negative aside from HPI PMH and PSH reviewed FH asked and noncontributory Social history; doesn't drink or use tobacco. Medication list reviewed OBJECTIVE: VS, labs, imaging reviewed NAD, AAO, resting in bed Tender in upper abdomen, nondistended, +BS RRR s1/2 no mgr Lungs CTAB w/ sym exp CN2-12 wnl, no fnd Normal mood, appropriate affect Labs show chronic anemia. No white count. Negative lipase. Unremarkable chemistry US prelim read shows cholelithiasis without cholecystitis EKG reviewed ASSESSMENT AND PLAN: Mrs. Ojeda presents with biliary colic 1) Biliary Colic -Surgery to evaluate for cholecystectomy -No abx for now; no radiographic evidence today without fever or wbc. If she clinically looks like she needs to be on them we of course will cover. Noted the US from 10/28 but as now there is no compelling evidence of current infection will hold off. -Pain and nausea control 2) Chronic Microcytic Anemia -Checking iron level to see if she would benefit from dose of IV iron -Trend CBC 3) History of fibroids -Surgery to discuss if multidisciplinary approach needed FENA -LR@100 -PRN replete -NPO -As tolerated Full Code
[2018-11-07] MEDS ORDERED: ONDANSETRON 4 MG/2 ML VIAL ONE ×2 (00:32→13:36)
[2018-11-07] MEDS ORDERED: ONDANSETRON 4 MG/2 ML VIAL IVPUSH ONE (00:36)
--- NOTE | 2018-11-07 00:40 | HP ---
CHIEF COMPLAINT: Abdominal Pain PCP: HISTORY OF PRESENT ILLNESS: 38 y/o F with PMHx of Anemia requiring Transfusion, Urterine Fibroids, Gallstones presents with RUQ Abdominal pain. Patient was recently in the ED On 10/28 for similar complaint. At that time, she was discharged home to follow up with surgery and GI for Cholelithiasis. Since D/C patient has followed up with Dr. Lassiter however she has continued to have abdominal pain. Today the patient was woken with a 8/10 burning, constant, RUQ pain that radiated around her abdomen to her back and to her midsternal area. The patient tried Tylenol and Motrin without any relief. She is unable to identify any triggering or relieving factors. THe pain does not change with position. The pain has never gotten this bad prompting the patient to visit the ED. Since then, the pain increased to >10/10 for which she was given Morphine and Ofirmev; During my interview the pain has decreased to 3-4/10. Patient denies any recent trauma or rash to the area. She has stopped her home dose of Ferrous sulfate tablets; No other recent medication changes. Patient endorses some nausea but no episodes of vomiting. Denies any fevers, chills, chest pain, SOB, Vomiting, diarrhea, constipation, dysuria, hematuria. Patient has mentioned a hx of uterine fibroids for which she was scheduled for a Hysterectomy in November however patient is hesitant to have the procedure done at this time. ER course was notable for: (1) Zofran 4mg, NS 1L, Ofirmev, Morphine 4mg (2) General Surgery (Dr. Lassiter) consulted (3) ABD US: Cholelithiasis w/o evidence of cholecystitis Recent Travel: Denies PAST MEDICAL HISTORY: Anemia with Hx of Transfusion (1 unit pRBC on 08/18 due to Urterine Fibroids) Urterine Fibroids Gallstones Uterine and Ovarian Cysts (was scheduled for Hysterectomy at [facility], Dr. Broderick) PAST SURGICAL HISTORY: Denies Social History: Smoking: Denies Alcohol: Occasionally Drugs: Marijuana (3-4 joints daily) Occupation: Real Estate Ambulation: Without assistance Residence: At home with and mother Diet: Recently stopped eating Fried foods and Dairy Family History: Mother: HTN, Stroke, Melanoma Father: Emphsyema Allergies Penicillins Allergy (Mild, Verified 11/06/18 20:18) Vomiting HOME MEDICATIONS: Home Medications Medication Instructions Recorded NK [No Known Home Medication] 11/06/18 REVIEW OF SYSTEMS As per HPI PHYSICAL EXAMINATION Vital Signs - 24 hr 11/06/18 20:16 Temperature 97.3 F L Pulse Rate 60 Respiratory 16 Rate Blood Pressure 145/70 O2 Sat by Pulse 100 Oximetry (%) GENERAL: A&Ox3, NAD HEAD: NCAT EYES: PERRL, EOMI EARS, NOSE, THROAT: Oropharynx clear without exudates. Moist mucous membranes. NECK: Supple without lymphadenopathy or JVD LUNGS: CTA b/l, No wheezes and no crackles HEART: Regular rate and rhythm, normal S1 and S2 without murmur ABDOMEN: Soft, Tender to palpation in the RUQ RLQ and Midepigastric area, not distended, + bowel sounds, no guarding, no rebound MUSCULOSKELETAL: No CVA tenderness. EXTREMITIES: 2+ pulses, No peripheral edema. NEUROLOGICAL: Cranial nerves II-XII intact. Normal speech. SKIN: Warm, dry Laboratory Results - last 24 hr 11/06/18 11/06/18 11/06/18 21:20 21:20 21:20 WBC 7.3 RBC 3.78 Hgb 9.6 L Hct 28.7 L D MCV 76.0 L MCH 25.5 L MCHC 33.5 RDW 17.5 H Plt Count 432 MPV 8.2 Absolute Neuts (auto) 5.2 Neutrophils % 71.4 Lymphocytes % 19.6 Monocytes % 5.8 Eosinophils % 2.3 Basophils % 0.9 Nucleated RBC % 0 Platelet Estimate Increased Platelet Comment No clumping noted PT with INR 12.00 INR 1.02 Sodium 142 Potassium 4.3 Chloride 111 H Carbon Dioxide 23 Anion Gap 7 L BUN 7 Creatinine 0.7 Creat Clearance w eGFR > 60 Random Glucose 91 Lactic Acid Calcium 8.5 Total Bilirubin 0.2 AST 17 ALT 18 Alkaline Phosphatase 63 Total Protein 6.5 Albumin 3.6 Lipase Urine Color Urine Appearance Urine pH Ur Specific Eighty Eight Urine Protein Urine Glucose (UA) Urine Ketones Urine Blood Urine Nitrite Urine Bilirubin Urine Urobilinogen Ur Leukocyte Esterase Urine WBC (Auto) Urine RBC (Auto) Urine Bacteria Urine Mucus Urine HCG, Qual 11/06/18 11/06/18 11/06/18 21:20 21:20 22:50 WBC RBC Hgb Hct MCV MCH MCHC RDW Plt Count MPV Absolute Neuts (auto) Neutrophils % Lymphocytes % Monocytes % Eosinophils % Basophils % Nucleated RBC % Platelet Estimate Platelet Comment PT with INR INR Sodium Potassium Chloride Carbon Dioxide Anion Gap BUN Creatinine Creat Clearance w eGFR Random Glucose Lactic Acid 1.0 Calcium Total Bilirubin AST ALT Alkaline Phosphatase Total Protein Albumin Lipase 104 Urine Color Straw Urine Appearance Clear Urine pH 6.0 D Ur Specific Eight[place] 1.011 Urine Protein Negative Urine Glucose (UA) Negative Urine Ketones 1+ H Urine Blood 2+ H Urine Nitrite Negative Urine Bilirubin Negative Urine Urobilinogen Negative Ur Leukocyte Esterase Negative Urine WBC (Auto) 1 Urine RBC (Auto) 23 Urine Bacteria Rare Urine Mucus Rare Urine HCG, Qual Negative ASSESSMENT/PLAN: 38 y/o F with PMHx of Anemia requiring Transfusion, Urterine Fibroids, Gallstones presents with RUQ Abdominal pain #RUQ Abdominal Pain Likely 2/2 Billary Colic -Afebrile, Lipase negative, No elevated WBC at this time, HCG Negative -UA 1+ Ketones, 2+ Blood, 1 WBC, Nitrite Negative, LE Negative; Urine Cx pending -ABD US: Cholelithiasis w/o evidence of cholecystitis -General Surgery (Dr. Lassiter) consulted by ED -NPO Pending surgical evaluation -LR @ 100 mls/hr -Pain control via Morphine -Nausea control via Zofran -No indication for ABx at this time -Lipase in the morning -EKG: NSR with Sinus arrhythmia, VR 62, QTc 434 #Hx of Anemia requiring Transfusion -2/2 Urterine Fibroids -Patient being followed by Dr. Broderick, Associate Store Manager at [facility] with scheduled hysterectomy in November -Most recent Iron Studies on 08/18 -Microcytic anemia on CBC today -Will check Iron level today, Can consider starting Venofer #FEN -LR @ 100 mls/hr -Lytes WNL -NPO Pending surgical evaluation #PPx -DVT: Heparin TID Dispo: Obs Med-Surg, will need med-rec Visit type - Emergency Visit Emergency Visit: Yes ED Registration Date: 11/06/18 Care time: The patient presented to the Emergency Department on the above date and was hospitalized for further evaluation of their emergent condition. - New Patient This patient is new to me today: Yes Date on this admission: 11/07/18 - Critical Care Critical Care patient: No
[2018-11-07] MEDS ORDERED: METOCLOPRAMIDE HCL INJECTION 10 MG/2 ML VIAL IVPB ONE (02:01)
[2018-11-07] MEDS ORDERED: METOCLOPRAMIDE HCL INJECTION 10 MG/2 ML VIAL ONE (02:15)
--- NOTE | 2018-11-07 03:05 | CONSULT ---
Consult Consult Specialty:: General Surgery Reason for Consultation:: biliary colic - History of Present Illness Chief Complaint: abdominal pain History of Present Illness: 38 yo female PMH Anemia requiring Transfusion, Urterine Fibroids, Gallstones presents with RUQ Abdominal pain. Patient was recently in the ED On 10/28 for similar complaint. At that time, she was discharged home to follow up with surgery and GI for Cholelithiasis. Since D/C patient has followed up with Dr. Lassiter however she has continued to have abdominal pain. Today the patient was woken with a 8/10 burning, constant, RUQ pain that radiated around her abdomen to her back and to her midsternal area. The patient tried Tylenol and Motrin without any relief. She is unable to identify any triggering or relieving factors. THe pain does not change with position. The pain has never gotten this bad prompting the patient to visit the ED. Since then, the pain increased to >10 /10 for which she was given Morphine and Ofirmev; During my interview the pain has decreased to 3-4/10. Patient denies any recent trauma or rash to the area. She has stopped her home dose of Ferrous sulfate tablets; No other recent medication changes. We were asked to assess. - History Source History Provided By: Patient, Medical Record - Past Medical History ...LMP: 10/07/18 - Past Surgical History Past Surgical History: Yes: None - Alcohol/Substance Use Hx Alcohol Use: No - Smoking History Smoking history: Never smoked Have you smoked in the past 12 months: No Home Medications - Allergies Allergies/Adverse Reactions: Allergies Allergy/AdvReac Type Severity Reaction Status Date / Time Penicillins Allergy Mild Vomiting Verified 11/06/18 20:18 - Home Medications Home Medications: Ambulatory Orders NK [No Known Home Medication] 11/06/18 Family Disease History - Family Disease History Family Disease History: CA: Sister Review of Systems - Review of Systems Constitutional: denies: Chills, Fever Eyes: denies: Blind Spots, Recent Change in Vision HENT: denies: Difficult Swallowing, Other Respiratory: denies: Cough, SOB Gastrointestinal: reports: Abdominal Pain. denies: Bloating, Constipation Genitourinary: denies: Burning, Discharge, Dysuria Breasts: reports: No Symptoms Reported. denies: Pain Neurological: denies: Change in LOC, Seizure, Syncope, Weakness Endocrine: denies: Unexplained Weight Gain, Unexplained Weight Loss Hematology/Lymphatic: denies: Easily Bruised, Excessive Bleeding Psychiatric: denies: Anxiety, Depression Physical Exam Vital Signs: Vital Signs Temperature 97.3 F L 11/06/18 20:16 Pulse Rate 60 11/06/18 20:16 Respiratory Rate 16 11/06/18 20:16 Blood Pressure 145/70 11/06/18 20:16 O2 Sat by Pulse Oximetry (%) 100 11/06/18 20:16 Constitutional: Yes: Well Nourished, No Distress, Calm Eyes: Yes: Conjunctiva Clear, EOM Intact HENT: Yes: Atraumatic, Normocephalic Neck: Yes: Supple, Trachea Midline Cardiovascular: Yes: Regular Rate and Rhythm, S1, S2 Respiratory: Yes: Regular, CTA Bilaterally Gastrointestinal: Yes: Normal Bowel Sounds, Soft, Abdomen, Obese, Tenderness. No: Tenderness, Epigastrium, Tenderness, Rebound (RUQ) ...Rectal Exam: No: Deferred Renal/: No: CVA Tenderness - Left, CVA Tenderness - Right Breast(s): No: Dimpling, Discharge from Nipple Musculoskeletal: No: Joint Swelling, Muscle Pain, Muscle Weakness Extremities: No: Cool, Cyanosis Edema: No Peripheral Pulses WNL: Yes Neurological: Yes: Alert, Oriented Psychiatric: Yes: Alert, Oriented Labs: CBC, BMP 11/06/18 21:20 11/06/18 21:20 Imaging - Results Ultrasound: Report Reviewed, Image Reviewed Problem List - Problems (1) Biliary colic Assessment/Plan: 38 yo female with biliary colic, large stones on imaging for cholecystetocmy NPO and IVF hydration IV antibiotics Discussed with patient risks, benefits and alternatives of laparoscopic possible open cholecystectomy, including but not limited to bleeding, infection , injury to adjacent structures, leak or injury, intraabdominal abscess, incisional hernia, need for further procedures, ; alternatives include antibiotics, delayed or no surgery - risks of this include failure of nonoperative therapy, perforation, sepsis, recurrence, . Patient desires to proceed with operation - will take to OR for above. Informed consent signed for same. Thank you for the opportunity to participate in the care of this patient. Code(s): K80.50 - CALCULUS OF BILE DUCT W/O CHOLANGITIS OR CHOLECYST W/O OBST (2) Gallstones Code(s): K80.20 - CALCULUS OF GALLBLADDER W/O CHOLECYSTITIS W/O OBSTRUCTION (3) Fibroid uterus Code(s): D25.9 - LEIOMYOMA OF UTERUS, UNSPECIFIED (4) Gastroenteritis Code(s): K52.9 - NONINFECTIVE GASTROENTERITIS AND COLITIS, UNSPECIFIED (5) Muscle spasm Code(s): M62.838 - OTHER MUSCLE SPASM
[2018-11-07] MEDS ORDERED: ONDANSETRON 4 MG/2 ML VIAL IVPUSH PRN ×2 (05:28→12:52)
[2018-11-07 05:56] LABS: BASO % 0.7 % (0-2.0); EOS % 1.3 % (0-4.5); HEMATOCRIT 28.6 % (32.4-45.2); LYMPH % 18.8 % (8-40); MCHC 31.3 g/dl (32.0-36.0); MEAN CELL VOLUME 76.7 fl (80-96); MEAN PLT VOLUME 8.1 fl (7.5-11.1); MONO % 4.9 % (3.8-10.2); NEUT % 74.3 % (42.8-82.8); PLATELET COUNT 371 K/MM3 (134-434); RBC 3.73 M/mm3 (3.60-5.2); RDW 17.1 % (11.6-15.6); WHITE BLOOD COUNT 6.4 K/mm3 (4.0-10.0)
[2018-11-07] MEDS ORDERED: HEPARIN NA (PORCINE) 5,000 UNITS/ML 1ML VIAL SQ SCH ×2 (06:00→14:00)
[2018-11-07 06:20] LABS: INR 1.08 (0.83-1.09); PROTHROMBIN TIME (PATIENT) 12.7 SEC (9.7-13.0)
[2018-11-07 06:21] LABS: ALBUMIN 3.1 g/dl (3.4-5.0); ALK PHOS 55 U/L (45-117); ANION GAP 6 MMOL/L (8-16); BILIRUBIN,TOTAL 0.2 mg/dL (0.2-1); BLOOD UREA NITROGEN 6 mg/dL (7-18); CALCIUM 7.9 mg/dL (8.5-10.1); CHLORIDE 111 mmol/L (98-107); CO2 25 mmol/L (21-32); CREATININE 0.6 mg/dL (0.55-1.3); GLUCOSE,RANDOM 96 mg/dL (74-106); LIPASE 77 U/L (73-393); PHOSPHOROUS 3.4 mg/dL (2.5-4.9); POTASSIUM 4.4 mmol/L (3.5-5.1); SGOT/AST 15 U/L (15-37); SGPT/ALT 20 U/L (13-61); SODIUM 143 mmol/L (136-145); TOT PROT 5.9 g/dl (6.4-8.2)
[2018-11-07] MEDS ORDERED: HEPARIN NA (PORCINE) 5,000 UNITS/ML 1ML VIAL ONE (07:40)
[2018-11-07] MEDS ORDERED: fentaNYL CITRATE 250 MCG/5 ML VIAL ONE (11:00)
[2018-11-07] MEDS ORDERED: MIDAZOLAM HCL 2 MG/2 ML SINGLE DOSE VIAL ONE (11:00)
[2018-11-07] MEDS ORDERED: ROCURONIUM BROMIDE 50 MG/5 ML VIAL ONE (11:00)
--- NOTE | 2018-11-07 11:32 | OP ---
Operative Note - Note: Operative Date: 11/07/18 Pre-Operative Diagnosis: chronic cholecystitis Operation: Laparoscopic cholecystectomy Findings: edematous gallbladder with 30ml hydrops fluid aspirated to fascilitate dissection. critical view of safety identified. all counts correct Post-Operative Diagnosis: Other (hydrop cholecystitis) Surgeon: Remington Marquez Resident Care Spec: Maricarmen Irby Anesthesiologist/FUNERAL DIRECTOR'S ASSISTANT: Jose Nagel Anesthesia: General, Local Specimens Removed: gallbladder with stones Estimated Blood Loss (mls): 5 Fluid Volume Replaced (mls): 800 Operative Report Dictated: Yes
[2018-11-07] MEDS ORDERED: ceFAZolin SODIUM 1 GM VIAL IVPB ONE (11:40)
[2018-11-07] MEDS ORDERED: BUPIVACAINE HCL/PF (5 MG/ML) 30 ML VIAL IJ ONE ×2 (12:00→12:20)
[2018-11-07] MEDS ORDERED: NEOSTIGMINE METHYLSULFATE 0.5 MG/ML - 10 ML MDV ONE (12:14)
[2018-11-07] MEDS ORDERED: ACETAMINOPHEN 325 MG TABLET (FP) PO PRN (12:32)
[2018-11-07] MEDS ORDERED: oxyCODONE HCL 5 MG TABLET PO PRN ×2 (12:32→12:33)
[2018-11-07] MEDS ORDERED: LACTATED RINGERS SOLUTION 1,000 ML IV SCH (12:38)
[2018-11-07] MEDS: KETOROLAC TROMETHAMINE 30 MG/1 ML VIAL IVPUSH PRN ×2 (13:15→20:58)
--- NOTE | 2018-11-07 13:18 | SURG ---
Surgery Air Traffic Control Supervisor Note Air Traffic Control Supervisor: Maricarmen Irby PA-C Date of Service: 11/07/18 Diagnosis: chronic cholecystitis Procedure: laparoscopic cholecystecotmy I was present for the entirety of the operative procedure. For further detail, please refer to operative report. Visit type - Case Type Case Type: ED Admission - Emergency Emergency Visit: Yes ED Registration Date: 11/06/18 Care time: The patient presented to the Emergency Department on the above date and was hospitalized for further evaluation of their emergent condition. - New patient This patient is new to me today: Yes Date on this admission: 11/07/18
[2018-11-07] MEDS ORDERED: KETOROLAC TROMETHAMINE 30 MG/1 ML VIAL ONE (13:22)
[2018-11-07] MEDS: ONDANSETRON 4 MG/2 ML VIAL IVPUSH PRN ×2 (13:30→20:57)
--- NOTE | 2018-11-07 14:50 | PN ---
Physical Exam: SUBJECTIVE: Patient seen and examined at bedside. No acute events overnight. Pt still complaining of abd pain this morning. NPO for surgery today. OBJECTIVE: Vital Signs Temperature 98.7 F 11/07/18 13:45 Pulse Rate 90 11/07/18 13:45 Respiratory Rate 18 11/07/18 13:45 Blood Pressure 124/76 11/07/18 13:45 O2 Sat by Pulse Oximetry (%) 100 11/07/18 13:45 GENERAL: A&Ox3, NAD HEAD: NCAT EYES: PERRL, EOMI EARS, NOSE, THROAT: Oropharynx clear without exudates. Moist mucous membranes. NECK: Supple without lymphadenopathy or JVD LUNGS: CTA b/l, No wheezes and no crackles HEART: Regular rate and rhythm, normal S1 and S2 without murmur ABDOMEN: Soft, Tender to palpation in the RUQ RLQ and Midepigastric area, not distended, + bowel sounds, no guarding, no rebound MUSCULOSKELETAL: No CVA tenderness. EXTREMITIES: 2+ pulses, No peripheral edema. NEUROLOGICAL: Cranial nerves II-XII intact. Normal speech. SKIN: Warm, dry CBCD WBC 6.4 K/mm3 (4.0-10.0) 11/07/18 06:00 RBC 3.73 M/mm3 (3.60-5.2) 11/07/18 06:00 Hgb 9.0 GM/dL (10.7-15.3) L 11/07/18 06:00 Hct 28.6 % (32.4-45.2) L 11/07/18 06:00 MCV 76.7 fl (80-96) L 11/07/18 06:00 MCHC 31.3 g/dl (32.0-36.0) L 11/07/18 06:00 RDW 17.1 % (11.6-15.6) H 11/07/18 06:00 Plt Count 371 K/MM3 (134-434) 11/07/18 06:00 MPV 8.1 fl (7.5-11.1) 11/07/18 06:00 CMP Sodium 143 mmol/L (136-145) 11/07/18 05:25 Potassium 4.4 mmol/L (3.5-5.1) 11/07/18 05:25 Chloride 111 mmol/L (98-107) H 11/07/18 05:25 Carbon Dioxide 25 mmol/L (21-32) 11/07/18 05:25 Anion Gap 6 MMOL/L (8-16) L 11/07/18 05:25 BUN 6 mg/dL (7-18) L 11/07/18 05:25 Creatinine 0.6 mg/dL (0.55-1.3) 11/07/18 05:25 Creat Clearance w eGFR > 60 (>60) 11/07/18 05:25 Calcium 7.9 mg/dL (8.5-10.1) L 11/07/18 05:25 Total Bilirubin 0.2 mg/dL (0.2-1) 11/07/18 05:25 AST 15 U/L (15-37) 11/07/18 05:25 ALT 20 U/L (13-61) 11/07/18 05:25 Alkaline Phosphatase 55 U/L (45-117) 11/07/18 05:25 Total Protein 5.9 g/dl (6.4-8.2) L 11/07/18 05:25 Albumin 3.1 g/dl (3.4-5.0) L 11/07/18 05:25 Active Medications Acetaminophen (Tylenol -) 650 mg PO Q6H PRN PRN Reason: PAIN LEVEL 1 - 3 Fentanyl (Sublimaze Injection -) 50 mcg IVPUSH [id number] PRN PRN Reason: PAIN-PACU ORDER X 4 DOSES ONLY Last Admin: 11/07/18 12:55 Dose: 50 mcg Heparin Sodium (Porcine) (Heparin -) 5,000 unit SQ TID [facility] Lactated Ringer's (Lactated Ringers Solution) 1,000 mls @ 125 mls/hr IV ASDIR [facility] Ketorolac Tromethamine (Toradol Injection -) 30 mg IVPUSH Q6H PRN PRN Reason: PAIN LEVEL 1-5 Stop: 11/12/18 13:35 Last Admin: 11/07/18 13:15 Dose: 30 mg Ondansetron HCl (Zofran Injection) 4 mg IVPUSH Q6H PRN PRN Reason: NAUSEA AND/OR VOMITING Last Admin: 11/07/18 13:30 Dose: 4 mg Ondansetron HCl (Zofran Injection) 4 mg IVPUSH Q6H PRN PRN Reason: NAUSEA AND/OR VOMITING Oxycodone HCl (Roxicodone -) 5 mg PO Q6H PRN PRN Reason: PAIN LEVEL 1-5 Oxycodone HCl (Roxicodone -) 10 mg PO Q6H PRN PRN Reason: PAIN LEVEL 6-10 CONSULTS: Surgery- Dr. Marquez (covering for Dr. Lassiter) IMAGING: * Abd U/S: Cholelithiasis w/o sonographic evidence of acute cholecystitis. ASSESSMENT/PLAN: 38 y/o F with PMHx of Anemia requiring Transfusion, Urterine Fibroids, Gallstones presents with RUQ Abdominal pain #RUQ Abdominal Pain Likely 2/2 biliary colic; S/P lap juan, POD #0 -UA 1+ Ketones, 2+ Blood, 1 WBC, Nitrite Negative, LE Negative; Urine Cx pending -LR @ 125 mls/hr -Oxycodone 5 mg Q6H, 10 mg Q6H, Tylenol 650 mg Q6H PRN for pain -Toradol 30 mg IVP PRN for pain -Zofran 4 mg Q6H for nausea -No indication for ABx at this time -Lipase 77, normal. -EKG: NSR with Sinus arrhythmia, VR 62, QTc 434 #Hx of Anemia requiring Transfusion; 2/2 Uterine Fibroids -Patient being followed by Dr. Broderick, [employer] at [facility] with scheduled hysterectomy in November -Most recent Iron Studies on 08/18 -Microcytic anemia on CBC today -Will check Iron level today, Can consider starting Venofer Cont home med: -Ferrous Sulfate 325 mg PO QD #FEN -LR @ 125 mls/hr -Lytes WNL -CLD #PPx -DVT: Heparin 5000U SQ TID Dispo -cont to monitor on inpt med-surg Visit type - Emergency Visit Emergency Visit: Yes ED Registration Date: 11/07/18 Care time: The patient presented to the Emergency Department on the above date and was hospitalized for further evaluation of their emergent condition. - New Patient This patient is new to me today: No - Critical Care Critical Care patient: No
--- NOTE | 2018-11-07 16:51 | EKG ---
Test Reason : Blood Pressure : / mmHG Vent. Rate : 062 BPM Atrial Rate : 062 BPM P-R Int : 116 ms QRS Dur : 074 ms QT Int : 428 ms P-R-T Axes : 020 041 048 degrees QTc Int : 434 ms NORMAL SINUS RHYTHM WITH SINUS ARRHYTHMIA NORMAL ECG WHEN COMPARED WITH ECG OF 18-AUG-2018 14:32, NO SIGNIFICANT CHANGE WAS FOUND Confirmed by OSCAR ALEXANDER MD ([id number]) on 11/07/2018 4:51:27 PM Referred By: Confirmed By:OSCAR ALEXANDER MD
--- NOTE | 2018-11-07 19:31 | PN ---
Teaching Attending Note Name of Resident: Ashtyn Garcia ATTENDING PHYSICIAN STATEMENT I saw and evaluated the patient. I reviewed the resident's note and discussed the case with the resident. I agree with the resident's findings and plan as documented. SUBJECTIVE: Patient is feeling better with no acute distress, no shortness of breath. s/p lap/chol. OBJECTIVE: Vital Signs Temperature 97.4 F L 11/07/18 18:37 Pulse Rate 77 11/07/18 18:37 Respiratory Rate 18 11/07/18 18:37 Blood Pressure 129/70 11/07/18 18:37 O2 Sat by Pulse Oximetry (%) 98 11/07/18 14:00 GENERAL: A&Ox3, NAD HEAD: NCAT, EYES: PERRL, EOMI EARS, NOSE, THROAT: Oropharynx clear without exudates. MMM. NECK: Supple without lymphadenopathy or JVD LUNGS: CTA b/l, No wheezes and no crackles HEART: Regular rate and rhythm, normal S1 and S2 without murmur ABDOMEN: Soft, s/p lap chol. + bowel sounds, no guarding, no rebound MUSCULOSKELETAL: No CVA tenderness. EXTREMITIES: 2+ pulses, No peripheral edema. NEUROLOGICAL: Cranial nerves II-XII intact. Normal speech. SKIN: Warm, dry. CBCD WBC 6.4 K/mm3 (4.0-10.0) 11/07/18 06:00 RBC 3.73 M/mm3 (3.60-5.2) 11/07/18 06:00 Hgb 9.0 GM/dL (10.7-15.3) L 11/07/18 06:00 Hct 28.6 % (32.4-45.2) L 11/07/18 06:00 MCV 76.7 fl (80-96) L 11/07/18 06:00 MCHC 31.3 g/dl (32.0-36.0) L 11/07/18 06:00 RDW 17.1 % (11.6-15.6) H 11/07/18 06:00 Plt Count 371 K/MM3 (134-434) 11/07/18 06:00 MPV 8.1 fl (7.5-11.1) 11/07/18 06:00 CMP Sodium 143 mmol/L (136-145) 11/07/18 05:25 Potassium 4.4 mmol/L (3.5-5.1) 11/07/18 05:25 Chloride 111 mmol/L (98-107) H 11/07/18 05:25 Carbon Dioxide 25 mmol/L (21-32) 11/07/18 05:25 Anion Gap 6 MMOL/L (8-16) L 11/07/18 05:25 BUN 6 mg/dL (7-18) L 11/07/18 05:25 Creatinine 0.6 mg/dL (0.55-1.3) 11/07/18 05:25 Creat Clearance w eGFR > 60 (>60) 11/07/18 05:25 Random Glucose 96 mg/dL (74-106) 11/07/18 05:25 Calcium 7.9 mg/dL (8.5-10.1) L 11/07/18 05:25 Total Bilirubin 0.2 mg/dL (0.2-1) 11/07/18 05:25 AST 15 U/L (15-37) 11/07/18 05:25 ALT 20 U/L (13-61) 11/07/18 05:25 Alkaline Phosphatase 55 U/L (45-117) 11/07/18 05:25 Total Protein 5.9 g/dl (6.4-8.2) L 11/07/18 05:25 Albumin 3.1 g/dl (3.4-5.0) L 11/07/18 05:25 Current Medications Generic Name Dose Route Start Last Admin Trade Name Freq PRN Reason Stop Dose Admin Acetaminophen 650 mg 11/07/18 12:32 Tylenol - PO Q6H PRN PAIN LEVEL 1 - 3 Fentanyl 50 mcg 11/07/18 12:52 11/07/18 12:55 Sublimaze Injection - IVPUSH 50 mcg [id number] PRN Administration PAIN-PACU ORDER X 4 DOSES ONLY Ferrous Sulfate 325 mg 11/08/18 10:00 Feosol - PO DAILY [facility] Heparin Sodium (Porcine) 5,000 unit 11/07/18 22:00 Heparin - SQ TID [facility] Lactated Ringer's 1,000 mls @ 125 mls/hr 11/07/18 13:00 11/07/18 15:25 Lactated Ringers Solution IV 125 mls/hr ASDIR [facility] Administration Ketorolac Tromethamine 30 mg 11/07/18 13:36 11/07/18 13:15 Toradol Injection - IVPUSH 11/12/18 13:35 30 mg Q6H PRN Administration PAIN LEVEL 1-5 Ondansetron HCl 4 mg 11/07/18 12:38 11/07/18 13:30 Zofran Injection IVPUSH 4 mg Q6H PRN Administration NAUSEA AND/OR VOMITING Ondansetron HCl 4 mg 11/07/18 12:52 Zofran Injection IVPUSH Q6H PRN NAUSEA AND/OR VOMITING Oxycodone HCl 5 mg 11/07/18 12:32 Roxicodone - PO Q6H PRN PAIN LEVEL 1-5 Oxycodone HCl 10 mg 11/07/18 12:33 Roxicodone - PO Q6H PRN PAIN LEVEL 6-10 Home Medications Medication Instructions Recorded Ferrous Sulfate 325 mg PO DAILY 11/07/18 ASSESSMENT AND PLAN: 38 y/o F with PMHx of Anemia requiring Transfusion, Urterine Fibroids, Gallstones presents with RUQ Abdominal pain #POD#0 s/p lap juan. Continue pain meds.possible discharge in am #Hx of Anemia requiring Transfusion s/p hysterectomy due to fibroids continue iron supplement. #PPx: DVT: Heparin 5000U SQ TID
[2018-11-07] MEDS: HEPARIN NA (PORCINE) 5,000 UNITS/ML 1ML VIAL SQ SCH (21:41)
[2018-11-08] MEDS: HEPARIN NA (PORCINE) 5,000 UNITS/ML 1ML VIAL SQ SCH (05:03)
[2018-11-08] MEDS: LACTATED RINGERS SOLUTION 1,000 ML IV SCH (05:04)
[2018-11-08] MEDS: KETOROLAC TROMETHAMINE 30 MG/1 ML VIAL IVPUSH PRN (05:10)
[2018-11-08 07:29] LABS: HEMATOCRIT 26.6 % (32.4-45.2); HEMOGLOBIN 8.2 GM/dL (10.7-15.3); MCH 23.7 pg (25.7-33.7); MCHC 30.9 g/dl (32.0-36.0); MEAN CELL VOLUME 76.7 fl (80-96); PLATELET COUNT 370 K/MM3 (134-434); RBC 3.47 M/mm3 (3.60-5.2); RDW 17.1 % (11.6-15.6); WHITE BLOOD COUNT 6.1 K/mm3 (4.0-10.0)
[2018-11-08 07:55] LABS: ANION GAP 5 MMOL/L (8-16); BLOOD UREA NITROGEN 5 mg/dL (7-18); CHLORIDE 109 mmol/L (98-107); CO2 26 mmol/L (21-32); CREATININE 0.6 mg/dL (0.55-1.3); GLUCOSE,RANDOM 91 mg/dL (74-106); POTASSIUM 3.8 mmol/L (3.5-5.1); SODIUM 139 mmol/L (136-145)
[2018-11-08] MEDS ORDERED: FERROUS SO4 325 MG TABLET (FP) PO SCH (10:00)
[2018-11-08 10:32] VITALS: BP 120/70; PULSE 72
[2018-11-08 11:41] VITALS: TEMP 98.1
--- NOTE | 2018-11-08 14:00 | DS ---
Physical Exam: SUBJECTIVE: Patient seen and examined. No acute events overnight. OBJECTIVE: Vital Signs Period Temp Pulse Resp BP Sys/Whitlock Pulse Ox Last 24 Hr 97.2 F-98.3 F 72-90 16-20 117-136/68-77 98 PHYSICAL EXAM GENERAL: A&Ox3, NAD HEAD: NCAT EYES: PERRL, EOMI EARS, NOSE, THROAT: Oropharynx clear without exudates. Moist mucous membranes. NECK: Supple without lymphadenopathy or JVD LUNGS: CTA b/l, No wheezes and no crackles HEART: Regular rate and rhythm, normal S1 and S2 without murmur ABDOMEN: Soft, Tender to palpation in the RUQ RLQ and Midepigastric area, not distended, + bowel sounds, no guarding, no rebound MUSCULOSKELETAL: No CVA tenderness. EXTREMITIES: 2+ pulses, No peripheral edema. NEUROLOGICAL: Cranial nerves II-XII intact. Normal speech. SKIN: Warm, dry LABS Laboratory Results - last 24 hr 11/08/18 11/08/18 06:30 06:30 WBC 6.1 RBC 3.47 L Hgb 8.2 L Hct 26.6 L MCV 76.7 L MCH 23.7 L MCHC 30.9 L RDW 17.1 H Plt Count 370 MPV 8.0 Sodium 139 Potassium 3.8 Chloride 109 H Carbon Dioxide 26 Anion Gap 5 L BUN 5 L Creatinine 0.6 Creat Clearance w eGFR > 60 Random Glucose 91 Calcium 8.0 L HOSPITAL COURSE: Date of Admission:11/07/18 IMAGING: * Abd U/S: Cholelithiasis w/o sonographic evidence of acute cholecystitis. 38 y/o F with PMHx of Anemia requiring Transfusion, Uterine Fibroids, Gallstones presented with RUQ abdominal pain found to have symptomatic cholelithiasis. Upon admission, Abd U/S showed cholelithiasis. Surgery was consulted and recommended lap juan for gallstone removal. Pt underwent lap juan, uneventual with no complications. Pt was found to have chronic cholecystitis. She was monitored overnight in the hospital and tolerated diet post-op. Pain was controlled. Pt was subsequently discharged home with Advil for pain and instructions to follow up with her pcp and surgeon for post-op evaluation. Date of Discharge: 11/08/18 Minutes to complete discharge: 36 Discharge Summary Reason For Visit: PAIN Condition: Improved - Instructions Diet, Activity, Other Instructions: Postoperative instructions: You had a laparoscopic cholecsytectomy by Dr. Remington Marquez of [facility]. Activity: Resume your usual activities gradually, but no heavy exertion or lifting more than 10-15 pounds for 1 month. You may shower daily starting then , just pat the incision areas dry. No bath or swimming until skin incisions have healed. Eat lightly at first, but advance to your usual diet as tolerated. Pain: You are given a prescription for Advil. Please take Advil 600 mg every 8 hours with food as needed for pain. It is important that you do not take any more than the specified dosage as it can cause stomach problems. Follow-up: Call Dr. Marquez' office at [phone] to make your postop appointment (Monday in approximately 2 weeks after surgery). Clinic is held in the [facility] on the first floor of [facility]. Also, please see your primary medical doctor, Dr. Mcmullen, within 1-2 weeks. Call the office if you have: * increasing pain not responsive to pain medication * fever of 101F or higher * unusual or increasing bleeding or drainage from wounds * increasing redness or swelling at wound sites Referrals: Remington Marquez MD [Staff Physician] - 2 Weeks Israel Mcmullen MD [Staff Physician] - 2 Weeks Disposition: HOME - Home Medications Comprehensive Discharge Medication List: Ambulatory Orders Ferrous Sulfate 325 mg PO DAILY 11/07/18 Ibuprofen 600 mg PO Q8H #21 tablet 11/08/18 This patient is new to me today: No Emergency Visit: Yes ED Registration Date: 11/07/18 Care time: The patient presented to the Emergency Department on the above date and was hospitalized for further evaluation of their emergent condition. Critical Care patient: No - Discharge Referral Referred to [facility] No
--- NOTE | 2018-11-08 14:19 | PN ---
Teaching Attending Note Name of Resident: Ashtyn Garcia ATTENDING PHYSICIAN STATEMENT I saw and evaluated the patient. I reviewed the resident's note and discussed the case with the resident. I agree with the resident's findings and plan as documented. SUBJECTIVE: No fever or chills. had BM today , tolerated food. minimal abd pain . OBJECTIVE: NAD CV: RRR, no MRG Lungs: CTAB Abd: laparoscopic surgical wounds , clean with no discharge. Nl BS Ext : no edema ASSESSMENT AND PLAN: 38 y/o lady with h/o iron def anemia , uterine fibroids who presented with abd pain and was found to have biliary colic with cholycystitis 1- biliary colic with cholycystitis ( acute vs chronic ) , s/p CCY POD 1 passed gas, had BM , tolerated diet f/u with sx as out pt ibuprofen for pain control at dc no heavy lifting no need for Abx 2- h/o iron def anemia : cont iron d/w with her hysterectomy, has appointment with her [facility]. 3- dispo DC home
--- NOTE | 2018-11-08 16:03 | PATH ---
Surgical Pathology Report Patient Name: JOEL MORTENSEN [facility]. Rec. #: [id number] /Age/Gender: 1980 (Age: 38) / F Account: [id number] Location: [address] [place] [address]/[facility] Taken: 11/07/2018 Received: 11/07/2018 Reported: 11/08/2018 Physicians: Remington Marquez M.D. PHYSICIAN EMERGENCY DEPT Specimen(s) Received GALLBLADDER Clinical History Chronic cholecystitis Final Diagnosis GALLBLADDER, CHOLECYSTECTOMY: CHRONIC CHOLECYSTITIS AND CHOLELITHIASIS. Electronically Signed Yvonne Cantrell M.D. Gross Description Received in formalin, labeled "gallbladder," is a 9.0 x 3.1 x 3.0 cm. gallbladder with a 0.2 cm. in length portion of cystic duct attached. The outer surface is severino-pink and varies from smooth to shaggy. The lumen contains severino-red, mucinous bile as well as 4 yellow, irregular choleliths averaging 1.5 cm in greatest dimension. The mucosa is severino-red and eroded. The wall of the gallbladder measures up to 0.4 cm. in thickness. Fire Extinguisher Installer sections are submitted in one cassette. /11/07/201811/07/2018
[2018-11-19 16:40] LABS: SERUM IRON SATURATION 3; UIBC 381
[2018-11-19 16:41] LABS: TOTAL IRON BINDING CAPACITY 391
--- NOTE | 2018-11-20 09:18 | OP ---
DATE OF OPERATION: 11/07/2018 PREOPERATIVE DIAGNOSIS: Chronic cholecystitis. POSTOPERATIVE DIAGNOSIS: Chronic cholecystitis. PROCEDURE: Laparoscopic cholecystectomy. ATTENDING SURGEON: Remington Marquez MD REVERSER: MAGNOLIA Collins VACUUM TESTER CANS: Jose Nagel CRNA ANESTHESIA TYPE: General with local. Local consisted of 0.5% Marcaine, a total of 10 mL given in area block fashion. ESTIMATED BLOOD LOSS: 5 mL. INTRAVENOUS FLUIDS: 800 mL. SPECIMEN: Gallbladder with stones. INDICATIONS: Patient is presenting with a history of right upper quadrant pain, leukocytosis. She was counseled regarding the risks, benefits, and alternatives after CT scan confirmed the presence of the procedure. DESCRIPTION OF PROCEDURE: The patient was brought to the operating room. She was placed in the supine position on the operating table. The lower extremity had SCDs placed to compression. Patient was induced under general anesthesia and endotracheally intubated. We began first with shave, prep, and drape of the anterior abdominal wall. After a formal timeout was done, identifying the operative site, first with an umbilical approach it was scribed and incised with a 15-blade scalpel, deepened and widened through the subcutaneous tissue. Care was taken then to elevate the fascia and place a [id number] 0 Vicryl stitch to ablate the trocar site. At this point, blunt entry was made into the abdomen. It was established to 15 mmHg and with a 10-mm Erich port. With this completed, we began with inspection of the abdomen, which appeared atraumatic in the entry point and then insufflation of additional three 5-mm trocars, 1 in the subxiphoid area and 2 in the right upper abdomen. After this was done under direct visualization, care was then taken to identify the gallbladder. The gallbladder appeared tense and edematous. The dome was grasped and it was decompressed with needle decompression from the right side of the abdomen. Approximately 30 mL of hydrops fluid was aspirated to facilitate the dissection. We then grasped the dome of the gallbladder and retracted it cranially into the left shoulder. The dissection was then carried through to develop a plane in the cystic structures to identify the critical view of safety. With this completed, 5-mm clips were used to control the cystic duct and cystic artery as they were in the critical view of safety, coursing into the gallbladder. EndoGIA scissors, at which point we then proceeded with elevation of the gallbladder from the fossa. The gallbladder was removed through the fossa with Bovie cautery and hemostasis was obtained throughout the dissection. We then turned our attention to irrigating the site, retrieving the gallbladder from the umbilical port with an EndoCatch bag, size 10-mm. The patient then had the trocar site closed and the skin was closed with 4-0 Vicryl stitch. The patient had skin cleaned, sterile dressings were placed including Dermabond. The patient was awoken from general anesthesia, having tolerated the procedure well. All counts were correct. Ports were removed under direct visualization. MD ETHEL Hays/[id number]
== END 2018-11-08 15:54 | disposition home or self-care (01) | DRG 263 ==
LOC: JER 20:10 → JERBED 23:14 → J5S 11-07 08:12 → OBSVTOIN 11-07 16:32
PROVIDERS: ADMIT Internal Medicine; ATTEND Internal Medicine
PROC: 0FT44ZZ Resection of Gallbladder, Percutaneous Endoscopic Approach (ICD-10-PCS; principal; 2018-11-07 13:30)
DX: K80.10 Calculus of gallbladder with chronic cholecystitis without obstruction (principal); K82.1 Hydrops of gallbladder; F12.10 Cannabis abuse, uncomplicated; D25.9 Leiomyoma of uterus, unspecified; M62.838 Other muscle spasm; N83.209 Unspecified ovarian cyst, unspecified side; Z88.0 Allergy status to penicillin; D50.9 Iron deficiency anemia, unspecified
CPT/HCPCS: 36415; 76705-TC; 80048; 80053; 81003; 81015; 83540; 83550; 83605; 83690; 83735; 84100; 84703; 85025; 85027; 85610; 86850; 86900; 86901; 87086; 88304-TC; 93005; 93010; 94760; 99284-25; G0378; J0131; J1644; J7030

== ENCOUNTER 2021-11-10 07:25 | Emergency (ER) | payer OTHER ==
[2021-11-10 07:51] VITALS: TEMP 97.4; BMI 29.7
[2021-11-10] MEDS ORDERED: SODIUM CHLORIDE 1,000 ML IV STA (08:49)
[2021-11-10] MEDS ORDERED: ONDANSETRON 4 MG/2 ML VIAL IVPUSH ONE (08:49)
[2021-11-10] MEDS ORDERED: ONDANSETRON 4 MG/2 ML VIAL ONE (08:56)
[2021-11-10] MEDS ORDERED: morphine SULFATE 4 MG/ML VIAL ONE (09:06)
[2021-11-10] MEDS ORDERED: morphine CARPU-JECT 4 MG/1 ML DISP.SYRIN IVPUSH ONE (09:16)
[2021-11-10 09:27] LABS: BASO % 0.6 % (0-2.0); EOS % 1.4 % (0-4.5); HEMATOCRIT 44.2 % (32.4-45.2); LYMPH % 11.1 % (8-40); MCH 28.7 pg (25.7-33.7); MCHC 33.9 g/dl (32.0-36.0); MEAN CELL VOLUME 84.8 fl (80-96); MEAN PLT VOLUME 8.2 fl (7.5-11.1); MONO % 4.2 % (3.8-10.2); NEUT % 82.7 % (42.8-82.8); PLATELET COUNT 396 10^3/uL (134-434); RBC 5.21 M/mm3 (3.60-5.2); WHITE BLOOD COUNT 12.8 K/mm3 (4.0-10.0)
[2021-11-10 09:34] LABS: CALCIUM 9.5 mg/dL (8.5-10.1)
[2021-11-10] MEDS ORDERED: METOCLOPRAMIDE HCL INJECTION 10 MG/2 ML VIAL IVPB ONE (09:34)
[2021-11-10 09:35] LABS: ALBUMIN 3.9 g/dl (3.4-5.0); BLOOD UREA NITROGEN 9.6 mg/dL (7-18)
[2021-11-10] MEDS ORDERED: METOCLOPRAMIDE HCL INJECTION 10 MG/2 ML VIAL ONE (09:35)
[2021-11-10 09:38] LABS: CREATININE 0.8 mg/dL (0.55-1.3)
[2021-11-10 09:39] LABS: BILIRUBIN,TOTAL 0.4 mg/dL (0.2-1); TOT PROT 7.1 g/dl (6.4-8.2)
[2021-11-10 12:00] LABS: HCG,QUALITATIVE URINE Negative
[2021-11-10 12:20] LABS: URINE APPEARANCE CLEAR; URINE BILIRUBIN NEGATIVE (NEGATIVE); URINE COLOR YELLOW; URINE GLUCOSE (UA) NEGATIVE (NEGATIVE); URINE KETONE 15 mg/dl (NEGATIVE); URINE NITRITE NEGATIVE (NEGATIVE); URINE PROTEIN NEGATIVE (NEGATIVE); URINE UROBILINOGEN 0.2 mg/dL (0.2-1.0)
[2021-11-10 12:21] LABS: EPI CELLS 7.1 /uL (0-25.1); HYALINE CASTS 0.25 /uL (0-3.1); URINE BACTERIA 59.1 /uL (0-1359); URINE LEUK ESTERASE NEGATIVE (NEGATIVE); URINE RBC 19.2 /uL (0-23.9); URINE WBC 3.9 /uL (0-25.8)
[2021-11-10] MEDS ORDERED: LORazepam 2 MG/ML SDV VIAL IVPUSH ONE ×2 (14:52→17:23)
[2021-11-10] MEDS ORDERED: LORazepam 2 MG/ML SDV VIAL ONE ×2 (15:26→17:24)
[2021-11-10 16:09] VITALS: BP 148/85; PULSE 66
== END 2021-11-10 17:30 | disposition short-term general hospital (02) ==
LOC: JER 07:25
PROC: 3E033NZ Introduction of Analgesics, Hypnotics, Sedatives into Peripheral Vein, Percutaneous Approach (ICD-10-PCS; principal; 2021-11-10)
PROC: 3E033NZ Introduction of Analgesics, Hypnotics, Sedatives into Peripheral Vein, Percutaneous Approach (ICD-10-PCS; 2021-11-10)
PROC: 3E033NZ Introduction of Analgesics, Hypnotics, Sedatives into Peripheral Vein, Percutaneous Approach (ICD-10-PCS; 2021-11-10)
PROC: 3E033NZ Introduction of Analgesics, Hypnotics, Sedatives into Peripheral Vein, Percutaneous Approach (ICD-10-PCS; 2021-11-10)
PROC: 3E033GC Introduction of Other Therapeutic Substance into Peripheral Vein, Percutaneous Approach (ICD-10-PCS; 2021-11-10)
PROC: 3E033NZ Introduction of Analgesics, Hypnotics, Sedatives into Peripheral Vein, Percutaneous Approach (ICD-10-PCS; 2021-11-10)
PROC: 3E033GC Introduction of Other Therapeutic Substance into Peripheral Vein, Percutaneous Approach (ICD-10-PCS; 2021-11-10)
PROC: 3E0337Z Introduction of Electrolytic and Water Balance Substance into Peripheral Vein, Percutaneous Approach (ICD-10-PCS; 2021-11-10)
DX: R10.31 Right lower quadrant pain (principal); R11.2 Nausea with vomiting, unspecified
CPT/HCPCS: 36415; 74177-TC; 76830-TC; 80053; 81003; 84703; 85025; 86850; 86900; 86901; 87086; 87804; 93005; 93010; 99285-25; C9803-CS; Q9967; U0003; U0005

== ENCOUNTER 2022-05-22 08:52 | Observation (INO) | payer OTHER ==
[2022-05-22] MEDS ORDERED: ONDANSETRON 4 MG/2 ML VIAL IVPB ONE ×2 (08:57→11:02)
[2022-05-22] MEDS ORDERED: SODIUM CHLORIDE 1,000 ML IV STA (08:58)
[2022-05-22] MEDS ORDERED: ONDANSETRON 4 MG/2 ML VIAL ONE ×2 (09:05→11:14)
[2022-05-22 09:36] LABS: HEMATOCRIT 45.3 % (32.4-45.2); HEMOGLOBIN 16.1 G/dL (10.7-15.3); MCH 30.2 pg (25.7-33.7); MCHC 35.4 g/dl (32.0-36.0); MEAN CELL VOLUME 85.2 fl (80-96); RBC 5.32 10^6/uL (3.60-5.2); RDW 14.5 % (11.6-15.6); WHITE BLOOD COUNT 18.5 10^3/uL (4.0-10.8)
[2022-05-22] MEDS ORDERED: PROMETHAZINE HCL 25 MG/1 ML VIAL IVPUSH ONE (09:38)
[2022-05-22] MEDS ORDERED: PROMETHAZINE HCL 25 MG/1 ML VIAL ONE (09:39)
[2022-05-22 09:43] LABS: ALBUMIN 4.4 g/dl (3.4-5.0); CALCIUM 9.7 mg/dl (8.5-10); CREATININE 0.7 mg/dl (0.55-1.3); TOT PROT 7.5 g/dl (6.4-8.2)
[2022-05-22] MEDS ORDERED: LORazepam 2 MG/ML SDV VIAL IVPUSH ONE (12:48)
[2022-05-22] MEDS ORDERED: ACETAMINOPHEN 1000 MG/100 ML BAG IVPB PRN (15:44)
[2022-05-22] MEDS ORDERED: ONDANSETRON 4 MG/2 ML VIAL IVPUSH PRN (15:46)
[2022-05-22 18:58] LABS: EPITHELIAL CELLS RARE /hpf
[2022-05-22 19:08] LABS: HEMATOCRIT 39.9 % (32.4-45.2); HEMOGLOBIN 13.8 G/dL (10.7-15.3); MCH 29.3 pg (25.7-33.7); MCHC 34.5 g/dl (32.0-36.0); MEAN PLT VOLUME 7.7 fl (7.5-11.1); PLATELET COUNT 324.5 10^3/uL (134-434); RDW 14.1 % (11.6-15.6); WHITE BLOOD COUNT 13.9 10^3/uL (4.0-10.8)
[2022-05-22] MEDS: DEXTROSE 5%-0.45% SALINE 1,000 ML IV SCH (20:48)
[2022-05-23] MEDS: DEXTROSE 5%-0.45% SALINE 1,000 ML IV SCH (04:28)
[2022-05-23 06:02] VITALS: BMI 27.8
[2022-05-23] MEDS ORDERED: ENOXAPARIN NA (PORCINE) 40 MG/0.4 ML DISP.SYRIN SQ SCH (10:00)
[2022-05-23] MEDS ORDERED: CEFTRIAXONE 1 GM in DEXTROSE 5%-WATER - 50 ML IVPB SCH (10:00)
[2022-05-23] MEDS ORDERED: cefTRIAXone SODIUM 1 GM VIAL ONE (10:37)
[2022-05-23] MEDS ORDERED: DEXTROSE 5%-WATER - 50 ML IVPB ONE (10:37)
[2022-05-23 10:52] LABS: BASO % 0.3 % (0-2.0); EOS % 0.4 % (0-4.5); HEMATOCRIT 38.7 % (32.4-45.2); LYMPH % 17.5 % (8-40); MCH 28.8 pg (25.7-33.7); MCHC 33.7 g/dl (32.0-36.0); MEAN CELL VOLUME 85.6 fl (80-96); MEAN PLT VOLUME 8.3 fl (7.5-11.1); MONO % 4.5 % (3.8-10.2); NEUT % 77.3 % (42.8-82.8); PLATELET COUNT 283 10^3/uL (134-434); RBC 4.52 M/mm3 (3.60-5.2); RDW 13.4 % (11.6-15.6); WHITE BLOOD COUNT 9.8 K/mm3 (4.0-10.0)
[2022-05-23 11:28] LABS: ALBUMIN 3.2 g/dl (3.4-5.0); BLOOD UREA NITROGEN 6.7 mg/dL (7-18)
[2022-05-23 11:29] LABS: CALCIUM 8.2 mg/dL (8.5-10.1)
[2022-05-23 11:31] LABS: CREATININE 0.7 mg/dL (0.55-1.3)
[2022-05-23 11:32] LABS: BILIRUBIN,TOTAL 0.4 mg/dL (0.2-1); TOT PROT 5.7 g/dl (6.4-8.2)
[2022-05-23 14:27] VITALS: BP 119/78; PULSE 85; TEMP 98
[2022-05-23] MEDS ORDERED: NAPH,MB-DB/K PH,MBDB POWDER PACKET PO ONE (15:00)
== END 2022-05-23 17:42 | disposition home or self-care (01) ==
LOC: FER 08:52 → FM/S 16:57 → J6S 05-23 03:21
PROVIDERS: ADMIT Internal Medicine; ATTEND Internal Medicine
PROC: 3E03329 Introduction of Other Anti-infective into Peripheral Vein, Percutaneous Approach (ICD-10-PCS; principal; 2022-05-22)
PROC: 3E033NZ Introduction of Analgesics, Hypnotics, Sedatives into Peripheral Vein, Percutaneous Approach (ICD-10-PCS; 2022-05-22)
PROC: 3E0337Z Introduction of Electrolytic and Water Balance Substance into Peripheral Vein, Percutaneous Approach (ICD-10-PCS; 2022-05-22)
PROC: 3E023GC Introduction of Other Therapeutic Substance into Muscle, Percutaneous Approach (ICD-10-PCS; 2022-05-22)
PROC: 3E03329 Introduction of Other Anti-infective into Peripheral Vein, Percutaneous Approach (ICD-10-PCS; 2022-05-22)
PROC: 3E0333Z Introduction of Anti-inflammatory into Peripheral Vein, Percutaneous Approach (ICD-10-PCS; 2022-05-22)
DX: U07.1 COVID-19 (principal); A09 Infectious gastroenteritis and colitis, unspecified; N83.209 Unspecified ovarian cyst, unspecified side; F12.10 Cannabis abuse, uncomplicated; N80.9 Endometriosis, unspecified; Z29.8 Encounter for other specified prophylactic measures; Z88.0 Allergy status to penicillin; Z88.8 Allergy status to other drugs, medicaments and biological substances
CPT/HCPCS: 36415; 71046-TC-FY; 74177-TC; 76856-TC; 80053; 81003; 81015; 82728; 83605; 83615; 83690; 83735; 84100; 84703; 85025; 85027; 85379; 86140; 87040; 87086; 96361; 96365; 96366; 96367; 96372; 96375; 99285-25; C9803-CS; G0378; Q9967; U0003; U0005

== ENCOUNTER 2023-01-14 16:34 | Emergency (ER) | payer OTHER ==
[2023-01-14 16:41] VITALS: BMI 28.1
[2023-01-14] MEDS ORDERED: KETOROLAC TROMETHAMINE 30 MG/1 ML VIAL IM ONE (20:18)
[2023-01-14] MEDS ORDERED: KETOROLAC TROMETHAMINE 30 MG/1 ML VIAL ONE (20:26)
[2023-01-14] MEDS ORDERED: CLINDAMYCIN HCL 150 MG CAPSULE (FP) ONE (20:26)
[2023-01-14] MEDS ORDERED: CLINDAMYCIN HCL 150 MG CAPSULE (FP) PO ONE (20:26)
[2023-01-14 22:15] VITALS: BP 126/86; PULSE 78; RESP 18; TEMP 98.6
== END 2023-01-14 22:15 | disposition home or self-care (01) ==
LOC: JER 16:34
PROC: 3E0233Z Introduction of Anti-inflammatory into Muscle, Percutaneous Approach (ICD-10-PCS; principal; 2023-01-14)
DX: N61.1 Abscess of the breast and nipple (principal)
CPT/HCPCS: 76604; 99284-25